=== PATIENT | female | born 1935 | race Caucasian/White ===

== ENCOUNTER 2016-05-07 14:08 | Inpatient (IN) | payer MEDICARE, BC ==
--- NOTE | ~2016-05-07 | EKG ---
PATIENT: KENIA NEGRON UNIT #: [id number] Ventricular Rate: 66 BPM Atrial Rate: 66 BPM P-R Interval: 172 ms QRS Duration: 80 ms Q-T Interval: 394 ms QTC Calculation(Bezet): 413 ms P Austin: 0 degrees Calculated R Austin: -60 degrees Calculated T Austin: 57 degrees Diagnosis Line: Sinus rhythm with Premature atrial complexes Diagnosis Line: Left anterior fascicular block Diagnosis Line: Cannot rule out Anteroseptal infarct (cited on or Diagnosis Line: before 08-MAY-2016) Diagnosis Line: Abnormal ECG Diagnosis Line: When compared with ECG of 06-FEB-2016 17:32, Diagnosis Line: Nonspecific T wave abnormality, improved in Diagnosis Line: Inferior leads Diagnosis Line: Confirmed by ALDO TIERNEY MD ([id number]) on 05/09/2016 Diagnosis Line: 6:06:15 PM INTERPRETING MD: NIALL BENTON
--- NOTE | ~2016-05-07 | DS ---
Unit #: [id number] #: [id number] Patient: KENIA NEGRON [id number] [address] [address] [id number] I MR#: [id number] NAME: KENIA NEGRON. ROOM: 55 Age: 81 Sex: F Admission Date: 05/07/2016 : 1935 Discharge Date: 05/10/2016 Attending Physician: Obinna Platt M.D. Primary Care Physician: Yessica Callejas M.D. DISCHARGE SUMMARY DIAGNOSES ON ADMISSION 1. Acute pyelonephritis. 2. Nephrolithiasis. DIAGNOSES ON DISCHARGE 1. Acute Klebsiella urinary tract infection. 2. Bradycardia, resolved. 3. Valvular heart disease, [id number] mitral and tricuspid regurgitation. 4. Paroxysmal atrial tachycardia. 5. Chronic obstructive pulmonary disease. 6. Hypertension. 7. Hyperlipidemia. 8. Chronic kidney disease. 9. Coronary artery disease. 10. Iron-deficiency anemia. Patient had an EGD and colonoscopy done in January,. 11. Hypertension. CONSULTATIONS 1. Dr. Rudolph in cardiac consultation. 2. Dr. Ashford in urology consultation. DIAGNOSTIC STUDIES LABORATORY: The patient's creatinine is 0.14, sodium is 141, potassium is 3.7. WBC 7.2, hemoglobin 8.4, platelet count 294,000. Urinalysis revealed acute (1) yeast. Urine culture is positive for Klebsiella pneumoniae. Patient's ferritin level was 14. IMAGING: CT scan of the abdomen and pelvis revealed diverticulosis. There was no evidence of diverticulitis. There was moderate stool in rectum and colon. HOSPITAL COURSE A 81-year-old female was admitted to [facility] with acute pyelonephritis. Details are as per admission H and P. Acute complicated UTI secondary to Klebsiella: The patient was treated with antibiotics. She is afebrile. Acute on chronic kidney disease: The patient's creatinine is much better now. Anemia: The patient has iron-deficiency anemia. She had scopes done in Unit #: [id number] #: [id number] Patient: KENIA NEGRON March 2015. I have added Ferrex. Today patient is comfortable, is not in any acute distress and wants to go home. PHYSICAL EXAMINATION VITAL SIGNS: Reveal temperature 97.8, pulse is 77 per minute, respiratory rate is 16 per minute, blood pressure this morning was 177/86. We will repeat that. HEENT: Revealed no conjunctival congestion. Sclerae is nonicteric. NECK: Supple. Trachea is central. RESPIRATORY: Revealed breath sounds equal bilaterally. There are no wheezes or crackles. HEART: Regular rate and rhythm. S1, S2. ABDOMEN: Soft, nontender. Bowel sounds are present in all four quadrants. SKIN: Warm and dry. RECOMMENDATIONS ON DISCHARGE Condition is stable. Activity as tolerated. MEDICATIONS 1. Symbicort 160/4.5 two puffs b.i.d. 2. Combivent MDI q.6 hours p.r.n. 3. Prednisone 3 mg p.o. daily. 4. Tylenol 650 mg p.o. q.6 hours p.r.n. 5. Mag-Oxide 400 mg p.o. b.i.d. 6. Celexa 20 mg p.o. daily. 7. Methotrexate 12.5 mg p.o. every Saturday. 8. Alprazolam 0.25 mg p.o. nightly p.r.n. 9. Lopressor 25 mg p.o. b.i.d. 10. Senokot S one tablet p.o. daily. 11. Lipitor 40 mg p.o. nightly. 12. Hydralazine 50 mg p.o. b.i.d. 13. Allopurinol 300 mg p.o. daily. 14. Niferex 150 mg p.o. daily. 15. Enteric coated aspirin 81 mg p.o. daily. 16. Hydrocodone 10 mg one p.o. t.i.d. p.r.n. which is patient's home dose. 17. Synthroid 25 mcg p.o. daily. 18. Isosorbide 10 mg p.o. b.i.d. 19. Nitroglycerin sublingual as needed. 20. Folic acid 1 mg p.o. daily. 21. Vitamin D 50,000 units q. Saturday. 22. Omnicef 300 mg p.o. b.i.d. for one week. 23. Diflucan 100 mg p.o. daily for two days. FOLLOWUP The patient is advised to follow up with primary care physician in one week and with cardiology and urology as recommended. Please make note that patient's digoxin was discontinued and dose of Lopressor was decreased because of bradycardia which as improved. The patient was advised to call primary care physician or go to ER if her condition changes. Unit #: [id number] #: [id number] Patient: KENIA NEGRON Dictated by... Jesus Drake TD: 05/10/2016 11:41 JOB #: [id number] DISCHARGE SUMMARY X Obinna Platt MD X DISCHARGE SUMMARY
--- NOTE | ~2016-05-07 | CO ---
Unit #: [id number] #: [id number] Patient: KENIA NEGRON [id number] [id number] [facility]. [place], [place] [address] [id number] I MR#: [id number] NAME: KENIA NEGRON ROOM: 558 Age: 80 Sex: F Admission Date: 05/07/2016 : 1935 Attending Physician: Obinna Platt M.D. Primary Care Physician: Yessica Callejas M.D. CONSULTATION REPORT REASON FOR CONSULTATION Bradycardia. HISTORY OF PRESENT ILLNESS This is a 80-year-old white female who is known to Dr. Almendarez who has a history of hypertension, hyperlipidemia, and paroxysmal atrial tachycardia. She had a cardiac catheterization in 2015 where she was found to have nonobstructive disease with 60% stenosis of the PDA of the right coronary artery. The patient presents to the emergency room with a complaint of lower abdominal discomfort, urinary symptoms with burning and mild hematuria and low back pain. Urinalysis positive for a urinary tract infection. Cultures are growing Gram-negative rods. CT of the abdomen and pelvis shows a nonobstructive stone in the mid right kidney. No evidence of appendicitis. She has been treated for pyelonephritis. Today, the patient had an episode of nausea and vomiting of non-bloody emesis. During that episode, her heart rate dropped to 37 beats per minute. The patient said she had a slight episode of dizziness. She also reports chest discomfort that was all going throughout the night. She describes the chest discomfort as a tightness. It is nonradiating to her neck, arm or jaw. She had no associated dyspnea, diaphoresis or nausea. Electrocardiogram shows no acute ischemic changes. PAST MEDICAL HISTORY 1. Cardiac catheterization 09/07/2015, shows left main, LAD and circumflex arteries normal. Right coronary artery 60% stenosis ostial to PDA. 2. 2D echocardiogram 11/30/2015, shows an ejection fraction of 60% with mild to moderate mitral regurgitation and mild to moderate tricuspid regurgitation. 3. 24 hour Holter monitor 01/16/2016 shows normal sinus rhythm. There was pause up to 1.9 seconds. Frequent premature atrial complexes and several runs of atrial tachycardia. 4. Paroxysmal atrial tachycardia. 5. Hypertension. 6. Hyperlipidemia. 7. COPD. 8. Rheumatoid arthritis. 9. Chronic back pain. 10. GERD. 11. Hypothyroidism. 12. Chronic kidney disease. 13. Nonsmoker. Unit #: [id number] #: [id number] Patient: KENIA NEGRON PAST SURGICAL HISTORY 1. Hysterectomy. 2. Tonsillectomy. 3. Rectocele. 4. Lumbar spinal fusion with instrumentation. 5. Right shoulder replacement. SOCIAL HISTORY The patient ambulates with a cane and uses a walker on occasion. Her activity is limited because of back pain. She has never smoked. No illicit drug or alcohol use. FAMILY HISTORY Both parents have heart problems. Has a sister and brother both who from cerebrovascular accidents. ALLERGIES Sulfa. HOME MEDICATIONS 1. Allopurinol 300 mg daily. 2. Digoxin 0.125 mg on Saturday, Saturday and Saturday. 3. Vitamin D 50,000 units weekly. 4. Prednisone 3 mg daily. 5. Folic acid 1 mg daily. 6. Combivent two puffs b.i.d. p.r.n. 7. Methotrexate five tablets on Saturday. 8. Celexa 20 mg daily. 9. Xanax 0.25 mg q. h.s. p.r.n. 10. Nitroglycerin 0.4 mg sublingual q.5 minutes p.r.n. chest pain. 11. Symbicort 160/4.5 mg, three puffs b.i.d. 12. Senna S, one tablet daily. 13. Levothyroxine 25 mcg daily. 14. Magnesium 400 mg b.i.d. 15. Zantac 150 mg b.i.d. 16. Lopressor 50 mg b.i.d. 17. Isosorbide mononitrate 10 mg b.i.d. 18. Hydrocodone/acetaminophen 10/325, t.i.d. REVIEW OF SYSTEMS CONSTITUTIONAL: Positive for weakness and fatigue. Reports no fever or chills. HEENT: No headache, hearing or visual changes. No difficulty swallowing. Positive for dizziness. CARDIOVASCULAR: Has chest discomfort described in the HPI. Denies palpitations. No paroxysmal nocturnal dyspnea or orthopnea. Denies syncope or near syncope. RESPIRATORY: Negative for dyspnea, cough or hemoptysis. GASTROINTESTINAL: Positive for lower abdominal pain and right flank pain. Positive for nausea and vomiting, non-bloody emesis. EXTREMITIES: Negative for lower extremity edema. PHYSICAL EXAMINATION VITAL SIGNS: Blood pressure 158/73, heart rate 68, temperature 99.8, BMI 24. GENERAL: This is a 80-year-old, well developed, elderly white female who is in no acute respiratory distress. NEUROLOGICAL: She is awake, alert and oriented without focal weaknesses. Unit #: [id number] #: [id number] Patient: KENIA NEGRON NECK: Trachea is midline. No thyromegaly or lymphadenopathy. No jugular venous distention. HEART: S1, S2. Heart sounds are normal. There is a grade 2 out of 6 systolic murmur heard best at the apex. No rubs or clicks. Regular rate and rhythm. LUNGS: Clear to auscultation without rales, rhonchi or wheezes. ABDOMEN: Soft with bowel sounds present. Tenderness in the lower abdominal quadrants. EXTREMITIES: Without leg edema. SKIN: Warm and dry. DIAGNOSTIC STUDIES LABORATORY: Glucose 82, BUN 19, creatinine 1.5, sodium 141, potassium 4.2, magnesium 1.7, CK total 46, troponin 0.04. Iron 15, TIBC 273. Ferritin 14, transferrin 195. White count 6.6, hemoglobin 8.1, hematocrit 25.9, platelet count 266. IMAGING: CT of the abdomen and pelvis shows nonobstructive stone in the mid right kidney. No evidence of appendicitis. Diverticulosis without evidence of diverticulitis. CARDIOVASCULAR: Electrocardiogram - normal sinus rhythm with frequent premature atrial complexes. There is loss of R wave V1 through V4 with questionable old anteroseptal AR. Left anterior fascicular block. IMPRESSION 1. Acute pyelonephritis. 2. Urinary tract infection with Gram-negative bacillus. 3. Bradycardia. 4. History of paroxysmal atrial tachycardia. 5. Hypertension. 6. Hyperlipidemia. 7. Nonobstructive coronary artery disease with 60% to the ostial PDA per cardiac catheterization 08/2015. 8. Atypical chest pain. 9. Preserved left ventricular systolic function, ejection fraction of 60%. PLAN 1. Cardiology was consulted for bradycardia. Bradycardia was episodic when the patient was nauseated and vomiting. 2. Will discontinue digoxin. 3. Decrease dose of metoprolol to 25 mg b.i.d. 4. Chest pain is atypical for ischemic heart disease. She had coronary artery disease on cardiac catheterization in 2015. Troponin is negative. No acute ischemic changes on electrocardiogram. No cardiac workup is needed at this time. Thank you for allowing us to assist with this patient's care. Dictated by... Phil ChavezRJesus Whittington Unit #: [id number] #: [id number] Patient: KENIA NEGRON TD: 05/09/2016 10:21 JOB #: [id number] CONSULTATION REPORT X Daniel Weir APRN X CONSULTATION REPORT
--- NOTE | ~2016-05-07 | CT4 ---
[facility] A Service of [facility] & [facility] RADIOLOGY TEXT RESULTS PATIENT: KENIA NEGRON [facility] [id number] : 37 UNIT #: [id number] AGE: [address]: PAVITHRA MOCK MD SEX: F ORDER DR: [id number] [facility] [address] [place], [place] [address] [id number] MR#: [id number] Acc #: [id number] NAME: KENIA NEGRON. : 1935 SEX: F STUDY DATE/TIME: 05/07/2016 UNIT: [facility] ROOM: STUDY DESCRIPTION: CT Abd and Pelv Wo Cont Attending Physician: Melinda Aguilera M.D. Ordering Physician: Melinda Aguilera M.D. Primary Care Physician: Yessica Callejas M.D. MEDICAL IMAGING REPORT This report is preliminary unless electronic signature is present EXAM CT abdomen and pelvis without contrast 05/07/2016 13:25 hours HISTORY 80-year-old woman with complaint of back pain, right flank pain radiating to abdomen for 2 days. History of kidney stones. COMPARISON CT abdomen 03/29/2016 TECHNIQUE Helical noncontrasted images were obtained from the lung bases through the pubic symphysis without oral or intravenous contrast. Sagittal and coronal reconstructions were performed. Total exam DLP is 472 mGy-cm. The CT exam was performed with one or more of the following radiation dose reduction techniques: automatic exposure control, adjustment of mA and/or kV according to patient size, and iterative reconstruction. FINDINGS Images through the lung bases are clear and there are no effusions. Benign calcified granulomatous changes are stable. There is a small hiatal hernia without change. Noncontrasted images through the abdomen demonstrate a normal appearance to the liver, spleen, pancreas and bile ducts. The gallbladder is surgically absent. The adrenal glands are normal. There is a punctate stone in the anterior right mid kidney nonobstructing. There is no dilatation of the renal collecting systems or ureters. No ureteral calculi are seen. The bladder appears normal. The stomach is contracted and unopacified. Small bowel demonstrates no significant distension. There is generally increased amount of fluid in STS. [facility] A Service of [facility] & [facility] RADIOLOGY TEXT RESULTS PATIENT: KENIA NEGRON LOCATION: [facility] [id number] : 37 UNIT #: [id number] AGE: [address]: PAVITHRA MOCK MD SEX: F ORDER DR: the small bowel but no wall thickening. The terminal ileum is normal. I do not identify the appendix. There is no secondary evidence of appendicitis. There is moderate stool throughout the colon without colonic wall thickening. There are colonic diverticula in the distal descending colon and sigmoid colon without CT evidence of diverticulitis. There is moderate stool in the rectum. There is no adnexal mass or pelvic free fluid. IMPRESSION 1. Exam is limited by the lack of oral or intravenous contrast. There is no ureterectasis ureteral calculus seen. There is a punctate nonobstructing stone in the mid right kidney. 2. The gallbladder is surgically absent. 3. There is no evidence of appendicitis. 4. There is diverticulosis of the descending colon and sigmoid colon without CT evidence of diverticulitis. 5. There is a generalized increased amount of fluid in nondilated small bowel with no wall thickening. This is nonspecific. 6. Moderate stool in the colon and rectum. 7. The patient has had lumbar fusion with hardware present. There is no change and scoliosis or alignment. Hardware is intact. Dictated by... Abi Juan M.D. THIS IS AN ELECTRONICALLY VERIFIED REPORT Abi Juan M.D. at 05/07/2016 4:59 PM CHILANGO/mana TD: 05/07/2016 14:52 JOB #: [id number] MEDICAL IMAGING REPORT COPY
--- NOTE | ~2016-05-07 | CO ---
Unit #: [id number] #: [id number] Patient: KNEIA NEGRON [id number] [address] [place], [place] [address] [id number] I MR#: [id number] NAME: KENIA NEGRON ROOM: 558 Age: 80 Sex: F Admission Date: 05/07/2016 : 1935 Attending Physician: Obinna Platt M.D. Primary Care Physician: Yessica Callejas M.D. Consultation Date: 05/08/2016 CONSULTATION REPORT CHIEF COMPLAINT Burning with urination. HISTORY OF PRESENT ILLNESS The patient is a 80-year-old woman with history of rheumatoid arthritis. She was complaining about burning on urination. CT scan showed small punctate stone in the right kidney. No obstruction. No hydro. Urinalysis positive for leukocytes and yeast. Consult was made for us to see for these findings. PAST MEDICAL HISTORY Rheumatoid arthritis, COPD, A fib, chronic back pain, chronic kidney disease, anxiety, degenerative joint disease, depression, hypertension, back surgery, rectocele repair, hysterectomy, tonsillectomy. ALLERGIES Sulfa. MEDICATIONS Allopurinol, digoxin, vitamin D, prednisone, folic acid, Combivent, methotrexate, Celexa, Xanax, nitroglycerin, Symbicort, Senna, Synthroid, magnesium, Zantac, Lopressor, isosorbide, hydrocodone. PHYSICAL EXAMINATION VITAL SIGNS: Temperature 98. Other vital signs stable. GENERAL: Currently the patient is not in her room. DIAGNOSTIC STUDIES LABS: Creatinine 1.7. White blood cell count 6.6. Urinalysis, as mentioned, 3+ leukocytes, positive for yeast, positive for blood. 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 ASSESSMENT Likely UTI. PLAN Will start her on Diflucan, wait for culture sensitivities. No need for any urologic intervention at this time. Patient is currently on Rocephin. Thank you for the kind referral and consult. Dictated by... Unit #: [id number] #: [id number] Patient: KENIA NEGRON Jesus Hardin/charlene TD: 05/08/2016 09:15 JOB #: [id number] CONSULTATION REPORT X James Ashford MD CONSULTATION REPORT
--- NOTE | ~2016-05-07 | HP ---
Unit #: [id number] #: [id number] Patient: KENIA NEGRON [id number] [address] [address] [id number] I MR#: [id number] NAME: KENIA NEGRON. ROOM: 76166 Age: 80 Sex: F Admission Date: 05/07/2016 : 1935 Attending Physician: Peter Pena M.D. Primary Care Physician: Yessica Callejas M.D. HISTORY AND PHYSICAL CHIEF COMPLAINT Lung pain. HISTORY OF PRESENT ILLNESS The patient is a 80-year-old female with history of rheumatoid arthritis on steroids and atrial fibrillation, COPD, emphysema, chronic back pain who presented to the emergency room with a complaint of worsening flank pain. The patient has had this pain for the last two to three weeks and was seen at the rheumatology clinic this morning for the routine blood work. The patient was having severe pain associated with the decreased oral intake and burning sensation with urination. The patient was found to have a pyelonephritis with a UA positive for 3+ leukocyte esterase and innumerable urine WBCs and 5-10 urine RBCs. The patient had a CT of the abdomen and pelvis that showed a punctate nonobstructing stone in the mid right kidney. The patient has been admitted for the above reasons. The patient denies any fever, chills. Denies nausea, vomiting. PAST MEDICAL HISTORY 1. History of COPD. 2. Emphysema. 3. Chronic hypoxic respiratory failure on 2 L nocturnal oxygen. 4. Rheumatoid arthritis on chronic steroids. 5. Atrial fibrillation. 6. Hypertension. 7. Hyperlipidemia. 8. Degenerative joint disease. 9. Chronic back pain. 10. Depression. 11. Anxiety. 12. Chronic kidney disease. PAST SURGICAL HISTORY 1. History of partial hysterectomy. 2. Tonsillectomy. 3. Rectocele. 4. Lumbar fusion with instrumentation. 5. Right shoulder replaced. ALLERGIES Sulfa. SOCIAL HISTORY Denies any tobacco, alcohol, or any illicit drug abuse. Unit #: [id number] #: [id number] Patient: KENIA NEGRON FAMILY HISTORY Significant for lung cancer in sister and two brothers. HOME MEDICATIONS 1. Allopurinol. 2. Digoxin. 3. Vitamin D. 4. Prednisone. 5. Folic acid. 6. Combivent. 7. Methotrexate. 8. Celexa. 9. Alprazolam. 10. Nitroglycerin. 11. Symbicort. 12. Senna. 13. Synthroid. 14. Magnesium. 15. Zantac. 16. Lopressor. 17. Isosorbide. 18. Hydrocodone. REVIEW OF SYSTEMS A 14-point review of systems was performed and only pertinent positives were described above, remaining are negative. PHYSICAL EXAMINATION GENERAL: The patient is alert, awake, oriented, not in acute distress. VITAL SIGNS: Temperature 98.3, pulse 60, respiratory rate 15, blood pressure 152/77, saturating 99% on room air. HEENT: Head: Atraumatic, normocephalic. Pupils equal, round, and reactive to light and accommodation. Extraocular movements are intact. NECK: Supple without thyromegaly. LUNGS: Decreased air entry at the bases. No rhonchi. No wheezing. HEART: Regular rate and rhythm. ABDOMEN: Soft. Positive bowel sounds. BACK: Positive for right-sided flank tenderness and CVA tenderness. EXTREMITIES: No cyanosis. No clubbing. NEUROLOGIC: Alert, awake, oriented. No gross focal motor deficit. DIAGNOSTIC STUDIES LABORATORY: Glucose 116, BUN 23, creatinine 1.7, sodium 136, potassium 3.8, chloride 100, bicarbonate 29, calcium 9.3. Total protein 6.2, albumin 3.6, total bilirubin 0.6, AST 21, ALT 16, alkaline phosphatase 58. Lipase 19. WBC 6.3, hemoglobin 8.8, hematocrit 28.8, platelets 287,000, neutrophils 55.9. UA shows 3+ leukocyte esterase, 1+ protein, 3+ blood, urine RBCs 5-10, urine WBCs innumerable. IMAGING: CT of the abdomen and pelvis shows there is no ureterectasis or ureteral calculus seen. There is punctate nonobstructing stone in the mid right kidney. The gallbladder is surgically absent. There is no evidence of appendicitis. There is diverticulosis of the descending colon and sigmoid colon without CT evidence of diverticulitis. There is a generalized increased amount of fluid and nondilated small bowel with no wall thickening. This is nonspecific. Moderate stool in the colon and rectum. The patient has had lumbar fusion with hardware present. There Unit #: [id number] #: [id number] Patient: KENIA NEGRON is no change or scoliosis or alignment. Hardware is intact. ASSESSMENT 1. Right-sided pyelonephritis. 2. Nephrolithiasis. 3. Hypertension. 4. Anemia. PLAN Plan to admit the patient to inpatient with telemetry. Continue with IV antibiotics with Rocephin. Will have urology consult for the pyelonephritis with nephrolithiasis and hematuria. Check the lactate levels and repeat the CBC and BMP in the morning. Pain control with Dilaudid. Further recommendations will follow. Dictated by Jesus Krueger TD: 05/07/2016 16:27 JOB #: [id number] HISTORY AND PHYSICAL X X HISTORY AND PHYSICAL
[2016-05-07 12:15] LABS: URINE SOURCE CLEAN CATCH
[2016-05-07 12:31] LABS: URINE APPEARANCE CLOUDY; URINE BLOOD 3+ (NEG); URINE COLOR YELLOW; URINE GLUCOSE NORM (NORM); URINE KETONE NEG (NEG); URINE LEUKOCYTE ESTERASE 3+ (NEG); URINE NITRATE NEG (NEG); URINE PROTEIN 1+ (NEG); URINE UROBILINOGEN NORM (NORM)
[2016-05-07 12:32] LABS: URINE BILIRUBIN NEG (NEG)
[2016-05-07 12:34] LABS: BASOPHIL% 0.5 % (0-2.5); EOSINOPHIL# 0.5 X10e3 (0-0.7); EOSINOPHIL% 7.8 % (0.0-7.0); HEMATOCRIT 28.8 % (35.0-45.0); HEMOGLOBIN 8.8 gm/dL (12.0-16.0); LYMPHOCYTE# 1.2 X10e3 (1.0-3.5); MEAN CELL VOLUME 93.4 FL (83-96); MEAN CORPUSCULAR HEMOGLOBIN 28.7 PG (28-34); MEAN CORPUSCULAR HGB CONC 30.7 g/dL (30-36); MEAN PLATELET VOLUME 8.1 FL (6.5-11.5); MONOCYTE# 1.1 X10e3 (0-1.0); MONOCYTE% 16.8 % (3.0-12.0); NEUTROPHIL# 3.5 X10e3 (1.5-7.1); NEUTROPHIL% 55.9 % (40-75); PLATELET COUNT 287 X10e3 (140-420); RED BLOOD COUNT 3.08 X10e (3.90-5.30); RED CELL DISTRIBUTION WIDTH 19.7 % (11.0-15.5); WHITE BLOOD COUNT 6.3 X10e3 (4.0-10.5)
[2016-05-07 12:50] LABS: DIFF IND NO
[2016-05-07 12:58] LABS: ALBUMIN SERUM 3.6 g/dL (3.5-5.0); BILIRUBIN, DIRECT 0.1 mg/dL (0.0-0.2); BILIRUBIN,INDIRECT 0.5 mg/dL (0.0-0.9); BILIRUBIN,TOTAL 0.6 mg/dL (0.2-2.0); BUN/CREATININE RATIO 13.52; CALCIUM SERUM 9.3 mg/dL (8.4-10.2); CREATININE SERUM 1.7 mg/dL (0.6-1.4); GLOM FILT RATE Estimated 30.9 mL/min (>60); POTASSIUM 3.8 mmol/L (3.5-5.1); PROTEIN TOTAL SERUM 6.2 g/dL (6.0-8.3)
[2016-05-07 12:58] LABS: CULTURE INDICATED? YES; URINE BACTERIA AUWI 1+ (NEGATIVE); UWBCS1 AUWI INNUM (0-5)
[2016-05-07 12:59] LABS: URINE AMORPHOUS SEDIMENT AMORP URATES; URINE YEAST PRESENT
[~2016-05-07 14:08] MED LIST: ADALAT CC90 MG PO; ALBUTEROL MININEB NEB; ALBUTEROL17 GM; ALBUTEROL17 GM INH; ALBUTEROL20 ml INH; ALLOPURINOL300 MG PO; ALPRAZOLAM0.25 MG PO; APRESOLINE10 M1 PO; ASPIRIN EC81 M1 PO; ASPIRIN PO; ASPIRIN81 M2 PO; ASPIRIN81 MG PO; AZMACORT20 GM INH; CATAPRES-TTS-10.1 M1 PO; CATAPRES0.1 MG PO; CELEXA20 M1 PO; CELEXA20 MG PO; COLCRYS0.6 M2 PO; COMBIVENT RESPIM4 GM IH; CONZIP100 MG PO; DIGOX0.125 MG PO; DOXYCYCLINE HY100 M3 PO; FELDENE20 MG PO; FOLIC ACID PO; FOLIC ACID1 MG PO; HCTZ PO; HUMIBID-LA600 MG PO; HYDRALAZINE HCL25 MG PO; HYDROCHLOROTHIA25 MG PO; HYDROCODON-ACE1 EAC7 PO; ISOSORBIDE MONO10 MG PO; K-DUR20 ME1 DOB; LANOXICAPS0.1 M1 PO; LEVOTHYROXINE25 MC1 PO; LEVOTHYROXINE25 MCG PO; LIPITOR PO; LIPITOR20 MG DOB; LIPITOR20 MG PO; LOPRESSOR PO; LORTAB 7.51 TAB DOB; MAGNESIUM-VIT1 EACH PO; MAGNESIUM400 M1 PO; METHOTREXATE2.5 MG PO; METOPROLOL SUCC25 MG PO; MICRO-K PO; MIRALAX17 GM PO; NEXIUM PO; NIFEDIPINE ER30 MG PO; NIFEDIPINE ER90 M1 PO; NIFEDIPINE ER90 M2 PO; NITROGLYGERIN0.4 MG SL; OMNICEF300 MG PO; OXYGEN; PERCOCET 5-3251 TAB PO; PHENERGAN25 MG PO; PREDNISONE PO; PREDNISONE1 MG PO; PREDNISONE10 MG/DOSE PO; PREDNISONE5 M1 PO; PRILOSEC PO; PRILOSEC20 M1 PO; PRILOSEC40 MG PO; PROCARDIA10 MG PO; PROCARDIA90 MG/BOTT PO; PROZAC PO; SARAFEM20 MG PO; SENNA S TABLET1 TAB PO; SYMBICORT 160/4.6 G1 IH; SYMBICORT INH; SYNTHROID25 MCG PO; TAMSULOSIN HCL0.4 MG PO; TOPROL XL 50 MG50 MG PO; TRAMADOL HCL50 M1 PO; TUDORZA PRESS400 MCG IH; VITAL-D RX TABL1 TAB PO; VITAMIN B-12250 MCG PO; VITAMIN D250000 UNIT PO; VITAMIN D50000 UNIT PO; WALGREENS PHARMACY; ZANTAC150 MG PO; ZITHROMAX500 MG PO; ZOFRAN ODT4 MG DOB; [UNRECOGNIZED DRUG - OTHER]
[2016-05-07] MEDS ORDERED: HYDROCODON-ACE1 EAC5 PO (14:57)
[2016-05-07] MEDS ORDERED: LOPRESSOR PO (17:20)
[2016-05-08 06:51] LABS: HEMATOCRIT 25.9 % (35.0-45.0); HEMOGLOBIN 8.1 gm/dL (12.0-16.0); MEAN CORPUSCULAR HEMOGLOBIN 28.9 PG (28-34); MEAN CORPUSCULAR HGB CONC 31.4 g/dL (30-36); MEAN PLATELET VOLUME 8.3 FL (6.5-11.5); RED BLOOD COUNT 2.81 X10e (3.90-5.30); RED CELL DISTRIBUTION WIDTH 19.7 % (11.0-15.5); WHITE BLOOD COUNT 6.6 X10e3 (4.0-10.5)
[2016-05-08 08:02] LABS: BUN/CREATININE RATIO 12.66; CALCIUM SERUM 9.2 mg/dL (8.4-10.2); CREATININE SERUM 1.5 mg/dL (0.6-1.4); GLOM FILT RATE Estimated 35.7 mL/min (>60); POTASSIUM 4.2 mmol/L (3.5-5.1)
[2016-05-08 10:53] LABS: FOLATE (FOLIC ACID) >24.0 ng/mL (>5.8)
[2016-05-08 11:19] LABS: IRON SERUM 15 ug/dL (28-170); TOTAL IRON BINDING CAPACITY 273 ug/dL (269-535); TRANSFERRIN 195 mg/dL (192-382); TRANSFERRIN SATURATION 5 % (20-50)
[2016-05-08 13:45] LABS: MAGNESIUM 1.7 mg/dL (1.6-3.0)
[2016-05-09 05:14] LABS: HEMOGLOBIN 8.7 gm/dL (12.0-16.0); MEAN CELL VOLUME 92.6 FL (83-96); MEAN CORPUSCULAR HEMOGLOBIN 28.7 PG (28-34); MEAN CORPUSCULAR HGB CONC 31.1 g/dL (30-36); MEAN PLATELET VOLUME 7.9 FL (6.5-11.5); RED BLOOD COUNT 3.02 X10e (3.90-5.30); RED CELL DISTRIBUTION WIDTH 19.9 % (11.0-15.5); WHITE BLOOD COUNT 7.4 X10e3 (4.0-10.5)
[2016-05-09 06:10] LABS: BUN/CREATININE RATIO 8.66; CALCIUM SERUM 9.1 mg/dL (8.4-10.2); CREATININE SERUM 1.5 mg/dL (0.6-1.4); GLOM FILT RATE Estimated 35.7 mL/min (>60); POTASSIUM 4.4 mmol/L (3.5-5.1)
[2016-05-10 06:20] LABS: HEMATOCRIT 26.8 % (35.0-45.0); HEMOGLOBIN 8.4 gm/dL (12.0-16.0); MEAN CELL VOLUME 92.4 FL (83-96); MEAN CORPUSCULAR HGB CONC 31.4 g/dL (30-36); MEAN PLATELET VOLUME 8.2 FL (6.5-11.5); RED BLOOD COUNT 2.9 X10e (3.90-5.30); RED CELL DISTRIBUTION WIDTH 19.8 % (11.0-15.5); WHITE BLOOD COUNT 7.2 X10e3 (4.0-10.5)
[2016-05-10 07:23] LABS: BUN/CREATININE RATIO 8.57; CALCIUM SERUM 9.1 mg/dL (8.4-10.2); CREATININE SERUM 1.4 mg/dL (0.6-1.4); GLOM FILT RATE Estimated 38.6 mL/min (>60); POTASSIUM 3.7 mmol/L (3.5-5.1)
[2016-05-10] MEDS ORDERED: ASPIRIN81 MG PO (13:21)
[2016-05-10] MEDS ORDERED: HYDRALAZINE HCL50 MG PO (13:22)
[2016-05-10] MEDS ORDERED: LIPITOR40 MG PO (13:22)
[2016-05-10] MEDS ORDERED: OMNICEF300 M1 PO (13:23)
[2016-05-10] MEDS ORDERED: DIFLUCAN100 MG PO (13:24)
== END 2016-05-10 14:38 | disposition home health service (06) | DRG 690 ==
LOC: CED 14:08 → CEDOF 15:30 → C5B 19:18
PROVIDERS: Internal Medicine; Student in an Organized Health Care Education/Training Program
DX: N39.0 Urinary tract infection, site not specified (principal); J96.11 Chronic respiratory failure with hypoxia; I48.0 Paroxysmal atrial fibrillation; R00.1 Bradycardia, unspecified; I36.1 Nonrheumatic tricuspid (valve) insufficiency; B96.89 Other specified bacterial agents as the cause of diseases classified elsewhere; R31.9 Hematuria, unspecified; I12.9 Hypertensive chronic kidney disease with stage 1 through stage 4 chronic kidney disease, or unspecified chronic kidney disease; E78.5 Hyperlipidemia, unspecified; J44.9 Chronic obstructive pulmonary disease, unspecified; M06.9 Rheumatoid arthritis, unspecified; K21.9 Gastro-esophageal reflux disease without esophagitis; E03.9 Hypothyroidism, unspecified; Z90.711 Acquired absence of uterus with remaining cervical stump; Z96.611 Presence of right artificial shoulder joint; Z88.2 Allergy status to sulfonamides; Z79.52 Long term (current) use of systemic steroids; I34.0 Nonrheumatic mitral (valve) insufficiency; D50.9 Iron deficiency anemia, unspecified; N20.0 Calculus of kidney; N18.3 Chronic kidney disease, stage 3 (moderate)
CPT/HCPCS: 36415; 74176; 80048; 80076; 81003; 82274; 82550; 82607; 82728; 82746; 83540; 83550; 83605; 83690; 83735; 84484; 85025; 85027; 87086; 87088; 87186; 93005; 94640; 94664; 94760; 96365; 96375; 96376; 97162; 99285; G8978-GP; G8979-GP; G8980-GP; J0696; J1170; J1450; J1650; J2405; J3010; J3475; J8610

== ENCOUNTER 2016-07-22 19:12 | Emergency (ER) | payer MEDICARE, BC ==
--- NOTE | ~2016-07-22 | NM69 ---
[facility] A Service of [facility] RADIOLOGY TEXT RESULTS PATIENT: KENIA NEGRON LOCATION: [facility] : 37 UNIT #: [id number] AGE: [address]: Hansa Hernandez MD SEX: F ORDER DR: [id number] [facility] [address] [place], [place] [address] [id number] E MR#: [id number] Acc #: [id number] NAME: KENIA NEGRON. : 1935 SEX: F STUDY DATE/TIME: 07/23/2016 0:20 UNIT: MISA ROOM: STUDY DESCRIPTION: NM Pulm Vent and Perf Attending Physician: Hansa Hernandez M.D. Ordering Physician: Hansa Hernandez M.D. Primary Care Physician: Yessica Callejas M.D. MEDICAL IMAGING REPORT This report is preliminary unless electronic signature is present EXAM Ventilation-perfusion lung scan HISTORY 81-year-old female COPD, elevated D-dimer, shortness of air. COMPARISON Portable chest, 07/22/2016 FINDINGS Ventilation-perfusion lung scan was performed in standard 8 projections. Perfusion agent 5.3 mCi technetium 99m MAA and the ventilation agent 35.2 mCi technetium 99m DTPA aerosol. The examination demonstrates several small matched ventilation-perfusion defects. No ventilation-perfusion mismatch is seen. Mild asymmetry and ventilation perfusion right and left lung with greater perfusion and ventilation right lung that corresponds to the chest radiograph. Symmetric perfusion between the upper and lower lobes. There is some central deposition of radiopharmaceutical suggesting small airway disease. IMPRESSION Low probability ventilation-perfusion lung scan for pulmonary embolus. Central deposition of radiopharmaceutical on the ventilatory phase suggests small airway disease or emphysema. Dictated by... Tara Steele M.D. THIS IS AN ELECTRONICALLY VERIFIED REPORT Tara Steele M.D. at 07/23/2016 9:59 PM Krissy TD: 07/23/2016 09:26 [facility] A Service of [facility] RADIOLOGY TEXT RESULTS PATIENT: KENIA NEGRON [facility] [id number] : 37 UNIT #: [id number] AGE: [address]: Hansa Hernandez MD SEX: F ORDER DR: JOB #: [id number] MEDICAL IMAGING REPORT Page 1 of 1 COPY
--- NOTE | ~2016-07-22 | CR151 ---
[facility] A Service of [facility] RADIOLOGY TEXT RESULTS PATIENT: KENIA NEGRON LOCATION: [facility] : 37 UNIT #: [id number] AGE: [address]: Hansa Hernandez MD SEX: F ORDER DR: [id number] [facility] [address] [place], [place] [address] [id number] E MR#: [id number] Acc #: [id number] NAME: KENIA NEGRON : 1935 SEX: F STUDY DATE/TIME: 07/22/2016 19:34 UNIT: [facility] ROOM: STUDY DESCRIPTION: CR Hip Min 2 Views Rt Attending Physician: Hansa Hernandez M.D. Ordering Physician: Hansa Hernandez M.D. Primary Care Physician: Yessica Callejas M.D. MEDICAL IMAGING REPORT This report is preliminary unless electronic signature is present EXAM Right hip series INDICATION Right hip pain for the past 2 days. No known injury. PROCEDURE Frontal view of the pelvis, lateral view right hip. COMPARISON 12/01/2014 FINDINGS No fracture or dislocation. Left greater than right hip arthrosis. IMPRESSION 1. No acute findings. 2. Bilateral hip arthrosis left greater than right. Dictated by... Jeovany Ortiz M.D. THIS IS AN ELECTRONICALLY VERIFIED REPORT Jeovany Ortiz M.D. at 07/26/2016 7:05 AM Orion TD: 07/23/2016 08:22 JOB #: [id number] MEDICAL IMAGING REPORT Page 1 of 1 COPY
--- NOTE | ~2016-07-22 | EKG ---
PATIENT: KENIA NEGRON UNIT #: [id number] Ventricular Rate: 86 BPM Atrial Rate: 86 BPM P-R Interval: 164 ms QRS Duration: 70 ms Q-T Interval: 364 ms QTC Calculation(Bezet): 435 ms P Taft: 39 degrees Calculated R Taft: -56 degrees Calculated T Taft: 49 degrees Diagnosis Line: Sinus rhythm with Premature supraventricular Diagnosis Line: complexes Diagnosis Line: Left axis deviation Diagnosis Line: Anteroseptal infarct , age undetermined Diagnosis Line: Abnormal ECG Diagnosis Line: No previous ECGs available Diagnosis Line: Confirmed by MACY RODRIGUEZ MD ([id number]) on 07/25/2016 Diagnosis Line: 9:42:15 AM INTERPRETING MD: JENNIFER BENTON
--- NOTE | ~2016-07-22 | CR72 ---
[facility] A Service of [facility] RADIOLOGY TEXT RESULTS PATIENT: KENIA NEGRON LOCATION: [facility] : 37 UNIT #: [id number] AGE: [address]: Hansa Hernandez MD SEX: F ORDER DR: [id number] [facility] [address] [place], [place] [address] [id number] E MR#: [id number] Acc #: [id number] NAME: KENIA NEGRON : 1935 SEX: F STUDY DATE/TIME: 07/22/2016 19:32 UNIT: [facility] ROOM: STUDY DESCRIPTION: CR Chest Single View Portable Attending Physician: Hansa Hernandez M.D. Ordering Physician: Hansa Hernandez M.D. Primary Care Physician: Yessica Callejas M.D. MEDICAL IMAGING REPORT This report is preliminary unless electronic signature is present EXAM Portable chest 07/22/2016 HISTORY Shortness of breath and chest congestion and chest pain for 2 days. FINDINGS The heart is enlarged but stable compared with 02/04/2016. Thoracic aorta is minimally calcified and ectatic. The lungs are clear. There are no pleural effusions. Right humeral prosthesis is noted. IMPRESSION No active pulmonary disease. Dictated by... Darin Montana M.D. THIS IS AN ELECTRONICALLY VERIFIED REPORT Darin Montana M.D. at 07/23/2016 10:46 AM BRAD/carrie TD: 07/23/2016 08:27 JOB #: [id number] MEDICAL IMAGING REPORT Page 1 of 1 COPY
[~2016-07-22 19:12] MED LIST changes: +DIFLUCAN100 MG PO; +HYDRALAZINE HCL50 MG PO; +HYDROCODON-ACE1 EAC5 PO; +LIPITOR40 MG PO; +OMNICEF300 M1 PO
[2016-07-22 19:35] LABS: BASOPHIL% 0.4 % (0-2.5); DIFF IND YES; EOSINOPHIL# 0.1 X10e3 (0-0.7); EOSINOPHIL% 1.2 % (0.0-7.0); HEMOGLOBIN 11.5 gm/dL (12.0-16.0); LYMPHOCYTE# 1.7 X10e3 (1.0-3.5); LYMPHOCYTE% 27.9 % (17.0-45.0); MEAN CELL VOLUME 96.9 FL (83-96); MEAN CORPUSCULAR HEMOGLOBIN 30.2 PG (28-34); MEAN CORPUSCULAR HGB CONC 31.2 g/dL (30-36); MEAN PLATELET VOLUME 8.4 FL (6.5-11.5); MONOCYTE# 0.1 X10e3 (0-1.0); MONOCYTE% 2.3 % (3.0-12.0); NEUTROPHIL# 4.2 X10e3 (1.5-7.1); NEUTROPHIL% 68.2 % (40-75); PLATELET COUNT 222 X10e3 (140-420); RED BLOOD COUNT 3.82 X10e (3.90-5.30); RED CELL DISTRIBUTION WIDTH 23.9 % (11.0-15.5); WHITE BLOOD COUNT 6.2 X10e3 (4.0-10.5)
[2016-07-22 19:46] LABS: PROTHROMBIN TIME (PATIENT) 10.7 SECONDS (9.6-11.5)
[2016-07-22 19:47] LABS: POC - CKMB 1.1 ng/mL (0.0-7.9); POC - TROPONIN <0.05 ng/mL (<=0.05)
[2016-07-22 19:53] LABS: ALBUMIN SERUM 3.9 g/dL (3.5-5.0); BILIRUBIN, DIRECT 0.3 mg/dL (0.0-0.2); BILIRUBIN,INDIRECT 1.2 mg/dL (0.0-0.9); BILIRUBIN,TOTAL 1.5 mg/dL (0.2-2.0); BUN/CREATININE RATIO 15.71; CALCIUM SERUM 9.3 mg/dL (8.4-10.2); CREATININE SERUM 1.4 mg/dL (0.6-1.4); GLOM FILT RATE Estimated 35.6 mL/min (>60); POTASSIUM 4.1 mmol/L (3.5-5.1); PROTEIN TOTAL SERUM 6.6 g/dL (6.0-8.3)
[2016-07-22 20:02] LABS: PLATELET ESTIMATE NORMAL (NORMAL)
[2016-07-22 20:03] LABS: ACANTHOCYTES PRESENT; OVALOCYTES PRESENT; POIKILOCYTOSIS MOD; STOMATOCYTE PRESENT
[2016-07-22 20:04] LABS: SPHEROCYTE SL; TEAR DROP CELLS PRESENT
[2016-07-22 21:34] LABS: URINE SOURCE CLEAN CATCH
[2016-07-22 21:53] LABS: URINE APPEARANCE CLEAR; URINE BILIRUBIN NEG (NEG); URINE BLOOD NEG (NEG); URINE COLOR YELLOW; URINE GLUCOSE NEG (NEG); URINE KETONE 1+ (NEG); URINE LEUKOCYTE ESTERASE NEG (NEG); URINE NITRATE NEG (NEG); URINE PH 7.5 (5-8); URINE PROTEIN 2+ (NEG); URINE SPECIFIC GRAVITY 1.015 (1.003-1.035); URINE UROBILINOGEN 0.2 MG/DL (NEG)
[2016-07-22 21:57] LABS: CULTURE INDICATED? YES; URBCS1 AUWI 0-2 /[HPF] (0-2); URINE BACTERIA AUWI NEG (NEGATIVE); URINE SQUAMOUS EPITHELIAL CELL NONE SEEN /[HPF]
== END 2016-07-23 01:42 | disposition home or self-care (01) ==
LOC: CED 19:12
PROVIDERS: Emergency Medicine
DX: M13.851 Other specified arthritis, right hip (principal); E03.9 Hypothyroidism, unspecified; F41.9 Anxiety disorder, unspecified; K21.9 Gastro-esophageal reflux disease without esophagitis; Z90.710 Acquired absence of both cervix and uterus; Z88.2 Allergy status to sulfonamides
CPT/HCPCS: 36415; 71010; 73502; 78582; 80048; 80076; 81003; 82553; 83690; 84484; 85025; 85379; 85610; 87086; 93005; 99284; A9540; A9567

== ENCOUNTER 2016-08-10 14:10 | Inpatient (IN) | payer MEDICARE, BC ==
--- NOTE | ~2016-08-10 | EKG ---
PATIENT: KENIA NEGRON UNIT #: [id number] Ventricular Rate: 59 BPM Atrial Rate: 56 BPM QRS Duration: 74 ms Q-T Interval: 434 ms QTC Calculation(Bezet): 429 ms Calculated R [employer]: -36 degrees Calculated T [employer]: 42 degrees Diagnosis Line: Sinus bradycardia Diagnosis Line: Left axis deviation Diagnosis Line: Low voltage QRS Diagnosis Line: Septal infarct , age undetermined Diagnosis Line: Abnormal ECG Diagnosis Line: No previous ECGs available Diagnosis Line: Confirmed by BRENDA MAGANA MD ([id number]) on Diagnosis Line: 08/14/2016 3:12:30 PM INTERPRETING MD: IZZY BENTON
--- NOTE | ~2016-08-10 | CO ---
Unit #: [id number] #: [id number] Patient: KENIA NEGRON [id number] [address] [place], [place] [address] [id number] I MR#: [id number] NAME: KENIA NEGRON. ROOM: 325 Age: 81 Sex: F Admission Date: 08/10/2016 : 1935 Attending Physician: Christine Lu M.D. Primary Care Physician: Yessica Callejas M.D. Consultation Date: 08/11/2016 CONSULTATION REPORT REASON FOR CONSULTATION Ftxrx-bt-wobnevl diastolic congestive heart failure. HISTORY OF PRESENT ILLNESS This is a 81-year-old white female, who is known to our practice, sees Dr. Almendarez, who came to the emergency room with complaints of weakness, short of breath especially with minimal exertion. I felt her chest was congested. According to the patient, the patient states that [place] the country [place] . She came home later that evening and was very fatigued and exhausted. She says she started noticing that she was more short of breath with minimal exertion. Yesterday, she just continued to feel worse especially with dyspnea with exertion. She went to see Dr. Callejas. They evaluated her and thought she might have fluid in her lungs, so they sent her to the hospital for further evaluation and management. She denies any lower extremity edema. She denies any chest pain; pain in her neck, bilateral jaws, shoulders, arms, or elbow. She denies any palpitations. No dizziness, presyncope, or syncope. She has occasional cough, but no fever or chills. We just felt like her chest is congested. The patient was taken to the emergency room, the patient's blood pressure was 138/63, heart rate of 58, respirations are 18, temperature 98.3, and O2 saturation was 97% on room air. Her chest x-ray did not show anything acute. EKG shows sinus rhythm. Initial labs, her creatinine is up to 1.7. Her BNP is 982. Hemoglobin 9.7 and hematocrit 31.2. Initial cardiac enzymes are negative. Chest x-ray did not show anything acute. The patient will be admitted for further evaluation, management, and treated for some mild exacerbation of her COPD and sbgmi-vz-diswepc diastolic heart failure. PAST MEDICAL HISTORY 1. Hypertension. 2. Hyperlipidemia. 3. Paroxysmal atrial tachycardia and paroxysmal atrial fibrillation, not on chronic anticoagulation. 4. Cardiac cath, 08/2015; left main, LAD, and circumflex were normal with 60% stenosis in the RCA and ostial to the PDA. 5. On 11/2015, 2D echo, LVEF is 60% with moderate mitral regurgitation, vhnm-vf-zdaclcqk tricuspid regurgitation. 6. 24-hour Holter monitor, 12/2015 revealed a 1.9 second pause. Frequent PACs. Atrial tachycardia. 7. COPD. 8. Rheumatoid arthritis. 9. Chronic kidney disease. 10. Hypothyroidism. 11. Iron deficiency anemia. Had an EGD and colonoscopy, 01/2016. Unit #: [id number] #: [id number] Patient: KENIA NEGRON 12. History of diastolic congestive heart failure. 13. Chronic back pain. 14. Gastroesophageal reflux disease. 15. Nonsmoker. PAST SURGICAL HISTORY 1. Partial hysterectomy. 2. Tonsillectomy. 3. Repair of a rectocele. 4. Lumbar fusion with rods. 5. Right shoulder replacement. 6. Bilateral cataract surgery. 7. Laparoscopic cholecystectomy. 8. Surgery on the right knee. HOME MEDICATIONS 1. Neurontin 100 mg p.o. three times daily. 2. Folic acid 1 mg p.o. daily. 3. Methotrexate 2.5 mg p.o. six tablets every seven days. 4. Senokot 8.6 p.o. at bedtime. 5. Alprazolam 0.25 mg p.o. daily p.r.n. 6. Aspirin 81 mg p.o. daily. 7. Mag oxide 400 mg p.o. twice daily. 8. Hydrocodone/acetaminophen 10/325 one tablet p.o. 3 times daily p.r.n. 9. Celexa 20 mg p.o. daily. 10. Isosorbide 10 mg p.o. twice daily. 11. Lipitor 40 mg p.o. at bedtime. 12. Iron sulfate 159 mg p.o. daily. 13. Hydralazine 50 mg p.o. twice daily. 14. Levothyroxine 25 mcg p.o. daily. 15. Vitamin D2 50,000 units p.o. weekly. 16. Metoprolol 50 mg p.o. three times daily. 17. Zantac 150 mg p.o. twice daily. 18. Prednisone 3 mg p.o. daily. 19. Allopurinol 300 mg p.o. daily. 20. Nitrostat 0.4 mg sublingual p.r.n. for chest pain. ALLERGIES Sulfonamides SOCIAL HISTORY The patient ambulates with a cane and uses a walker on occasion. She has low back pain that limits her exertion. She is a lifelong nonsmoker. No alcohol or illicit drug abuse. FAMILY HISTORY Her sister and brother both had from strokes and both her parents had some type of heart problems. REVIEW OF SYSTEMS See details in HPI. PHYSICAL EXAMINATION GENERAL: On exam, Ms. Negron is a 81-year-old white female, in no acute respiratory distress. She is awake, alert, and oriented. VITAL SIGNS: Blood pressure is 160/78, heart rate 58, respirations are 16, temperature 97.5, and O2 saturations 96% on room air. NECK: Trachea midline. No thyromegaly or lymphadenopathy. Normal Unit #: [id number] #: [id number] Patient: KENIA NEGRON carotid upstrokes. No jugular venous distention. HEART: S1 and S2. Regular rate and rhythm. Soft systolic murmur left sternal border. LUNGS: Diminished with a few fine rales in the bases, very diminished. ABDOMEN: Soft and nontender. Positive bowel sounds present. EXTREMITIES: Pedal pulses are palpable with faint trace pedal edema. DIAGNOSTIC DATA LABORATORY RESULTS: Glucose is 84, BUN 24, and creatinine 1.7. EGFR is 28.2, sodium 138, potassium 4.6, chloride is 105, CO2 of 26, calcium is 8.8, total protein 6.2, albumin 3.9, bilirubin total is 0.6. AST 20, ALT 11, and alkaline phosphatase is 54. BNP is 982. Lactic acid is 1.1. WBC is 4.2, hemoglobin 9.7, hematocrit 31.2, and platelets are 326. Initial cardiac enzymes; CK-MB is 1.6 troponin less than 0.05. Chest x-ray shows no acute cardiopulmonary findings. Stable mild cardiac enlargement and right shoulder replacement, otherwise unremarkable. EKG shows normal sinus rhythm with ventricular rate of 59 beats per minute. Left axis deviation, septal Q-waves, age undetermined. Poor R-wave progression. IMPRESSION 1. Zjvth-cq-ljucjgg respiratory failure with exacerbation of chronic obstructive pulmonary disease. 2. Sdiqh-mq-keiedgw diastolic congestive heart failure. Last echo, 11/2015, revealed left ventricular ejection fraction of 60% with moderate mitral regurgitation, and rxwf-lw-phnopqlq tricuspid regurgitation. 3. Hypertension. 4. Hyperlipidemia. 5. History of paroxysmal atrial tachycardia and paroxysmal atrial fibrillation, not on chronic anticoagulation. 6. History of anemia, iron deficiency. 7. Rheumatoid arthritis. 8. Chronic kidney disease. 9. Chronic back pain. 10. Gastroesophageal reflux disease. 11. Nonsmoker. PLAN 1. Gently diurese with a dose of IV Bumex. We will plant changer to p.o. Lasix this afternoon. Strict intake and output and daily weight. 1800 mL 24-hour fluid restriction. The patient on interview denies any overage on her fluid restriction or salt restriction. 2. Heart rate and blood pressure are currently stable. Continue on her other cardiac medications, which include Mag oxide, aspirin, isosorbide, Lipitor, hydralazine, and metoprolol. The patient is on daily Lovenox. 3. On exam, there is no signs or symptoms of acute unstable angina. Cardiac enzymes are negative. EKG does not show anything acute. Further recommendations pending per Dr. Almendarez. Thank you very much for allowing us to assist in the care. Dictated by... Eleanor Levin A.P.R.N. [facility] Unit #: [id number] #: [id number] Patient: KENIA NEGRON TD: 08/11/2016 16:17 JOB #: [id number] CONSULTATION REPORT Page 1 of 1 X Eleanor Levin APRN CONSULTATION REPORT
--- NOTE | ~2016-08-10 | DS ---
Unit #: [id number] #: [id number] Patient: KENIA NEGRON [id number] [address] [place], [place] [address] [id number] I MR#: [id number] NAME: KENIA NEGRON. ROOM: 325 Age: 81 Sex: F Admission Date: 08/10/2016 : 1935 Discharge Date: 08/12/2016 Attending Physician: Christine Lu M.D. Primary Care Physician: Yessica Callejas M.D. DISCHARGE SUMMARY FINAL DIAGNOSIS Dyspnea. OTHER DIAGNOSES 1. Acute on chronic diastolic congestive heart failure. 2. Rheumatoid arthritis. 3. Chronic obstructive pulmonary disease with exacerbation. CONSULTANTS Dr. Almendarez. PROCEDURES I believe, none. Ms. Negron is a 81-year-old with COPD and history of rheumatoid arthritis who presented to the emergency room with increasing shortness of air. I actually listened to her because she was sitting in the ruelas of radiology and she had some inspiratory crackles at the bases bilaterally. Unfortunately I could not recall what she sounded like the last time I listened. However, when she was in ER, her saturation was 97% and documented that that was on room air. She had a chest x-ray that was officially read as no acute changes. There was no report of suggestion of pulmonary edema. Her BNP was 982 on admission, which actually of course is elevated. Her BUN and creatinine on admission were 24 and 1.7. Repeat today is 37 and 1.6. Therefore, I do not think it has changed much. She was seen by Dr. Almendarez who changed her to Lasix 20 mg p.o. daily and stopped IV Bumex that she was started on when she came in. Her Solu-Medrol was tapered down and stopped. As of today, she is doing better and ready for discharge. On exam, she did have some inspiratory crackles at the bases. From my recollection, this is actually less than it was when she first came in. She will be discharged on the following medicines. DISCHARGE MEDICATIONS 1. Prednisone 30 mg, that is 10 mg 3 daily and then decreasing by 10 mg every 3 days and when she gets to the end of that, she is to take 3 mg p.o. daily just like her old dose. 2. Gabapentin 100 mg p.o. t.i.d. 3. Mag ox 400 mg b.i.d. 4. Celexa 20 mg p.o. daily. 5. Methotrexate 2.5 mg p.o. q. week, although she takes 15 mg I believe. 6. Xanax 0.25 mg daily p.r.n. 7. Lopressor 50 mg p.o. t.i.d. 8. Senokot 8.6 mg at bedtime. Unit #: [id number] #: [id number] Patient: KENIA NEGRON 9. Lasix 20 mg p.o. b.i.d. 10. Lipitor 40 mg p.o. daily. 11. Hydralazine 50 mg p.o. b.i.d. 12. Iron 324 mg p.o. daily. 13. Zantac 150 mg p.o. b.i.d. 14. Allopurinol 300 mg p.o. daily. 15. Aspirin 81 mg p.o. daily. 16. Hydrocodone 10/325, that is a home medicine, I did not write it. 17. Synthroid 0.025 mg daily. 18. Ismo 10 mg p.o. b.i.d. 19. Nitrostat 0.4 mg sublingual p.r.n. 20. Folic acid 1 mg p.o. daily. 21. Vitamin D 50,000 units p.o. weekly. FOLLOWUP She should followup with us in two weeks. She should followup with Dr. Almendarez as arranged. I will have home health see her. Dictated by... Jesus Jacobs/kaushik TD: 08/13/2016 06:59 JOB #: [id number] CC: Mariel Almendarez M.D. DISCHARGE SUMMARY Page 1 of 1 X Arvind Pressley MD X DISCHARGE SUMMARY
--- NOTE | ~2016-08-10 | CR63 ---
[facility] A Service of [facility] RADIOLOGY TEXT RESULTS PATIENT: KENIA NEGRON LOCATION: [facility] 325-01 : 37 UNIT #: [id number] AGE: [address]: Nito Lu MD SEX: F ORDER DR: [id number] [facility] [address] [place], [place] [address] [id number] I MR#: [id number] #: [id number] NAME: KENIA NEGRON. : 1935 SEX: F STUDY DATE/TIME: 08/10/2016 17:19 UNIT: CEDOF ROOM: 25759 STUDY DESCRIPTION: CR Chest 2 View Ordering Physician: Ilir Amaya M.D. Primary Care Physician: Yessica Callejas M.D. MEDICAL IMAGING REPORT This report is preliminary unless electronic signature is present EXAM PA and lateral chest 08/10/2016 HISTORY Possible pleural effusion and shortness of breath. Chest pain when breathing. Symptoms began yesterday per patient. COMPARISON AP portable chest 07/22/2016. FINDINGS No acute airspace disease. Focal eventration left hemidiaphragm, unchanged. Stable cardiomegaly. No pleural effusion or pneumothorax. Right shoulder replacement changes. Surgical changes seen in the lumbar spine on the lateral radiograph, There are degenerative disc endplate changes in the thoracic spine. IMPRESSION 1. No acute cardiopulmonary findings. 2. Stable mild cardiac enlargement. 3. Right shoulder replacement. 4. Left hemidiaphragm eventration, unchanged from previous examinations. Dictated by... Isabel Wild M.D. THIS IS AN ELECTRONICALLY VERIFIED REPORT Isabel Wild M.D. at 08/14/2016 8:40 AM LLH/ranjit TD: 08/10/2016 23:16 [facility] A Service of [facility] RADIOLOGY TEXT RESULTS PATIENT: KENIA NEGRON LOCATION: [facility] 325-01 : 37 UNIT #: [id number] AGE: [address]: Nito Lu MD SEX: F ORDER DR: JOB #: [id number] MEDICAL IMAGING REPORT Page 1 of 1 COPY
--- NOTE | ~2016-08-10 | HP ---
Unit #: [id number] #: [id number] Patient: KENIA NEGRON [id number] [address] [place], [place] [address] [id number] I MR#: [id number] NAME: KENIA NEGRON. ROOM: 325 Age: 81 Sex: F Admission Date: 08/10/2016 : 1935 Attending Physician: Nito Lu Primary Care Physician: Yessica Callejas M.D. HISTORY AND PHYSICAL This is a 81-year-old lady with history of COPD. Patient has been having upper respiratory tract type illness. She is having progressive shortness of air, paroxysmal nocturnal dyspnea, dyspnea on exertion. Patient is having some chest tightness. Do not see real significant chest pain. She is having some cough productive of white sputum. The patient is having progressive worsening of her hypertension. The patient in the emergency room was found to be significantly anemic. The patient came in with a creatinine of 1.7, which is above her usual, therefore, we are admitting her for CHF exacerbation. PAST MEDICAL HISTORY 1. Significant for history of COPD/emphysema. 2. History of chronic hypoxic respiratory failure on 2 L of nocturnal oxygen. 3. Rheumatoid arthritis, patient is on chronic steroids. 4. Atrial fibrillation. 5. Hypertension. 6. Hyperlipidemia. 7. Degenerative joint disease. 8. Chronic back pain. 9. Depression. 10. Anxiety. 11. Chronic kidney disease. PAST SURGICAL HISTORY Significant for partial hysterectomy, tonsillectomy, history of rectocele, history of lumbar fusion, history of right shoulder replacement. ALLERGIES Patient has a history of allergy to sulfa. SOCIAL HISTORY Patient denies any alcohol, tobacco, or polysubstance use. No occupational exposures. FAMILY HISTORY Significant for lung cancer in a sister and two brothers. HOME MEDICATIONS Neurontin 100 mg 3 times a day; folic acid 1 g daily; methotrexate 2.5 mg 6 tablets, that would be 15 mg every Saturday; Senna 8.6 mg at bedtime; alprazolam 0.25 mg p.o. daily p.r.n.; aspirin 81 mg daily; mag oxide 400 mg twice daily; hydrocodone/acetaminophen 1 tablet p.o. 3 times daily; Celexa 20 mg daily; Isordil 10 mg twice daily; Lipitor 40 mg at bedtime; Unit #: [id number] #: [id number] Patient: KENIA NEGRON iron 159 mg p.o. daily; hydralazine 50 mg twice daily; levothyroxine 15 mg daily; vitamin B2 15,000 units weekly; Lopressor 50 mg 3 times a day; zantac 150 mg twice daily; prednisone 3 mg daily; allopurinol 300 mg daily; Nitrostat 0.4 mg sublingual daily. REVIEW OF SYSTEMS Positive for shortness of breath, orthopnea, and otherwise a 12 point review of systems is normal. PHYSICAL EXAMINATION VITAL SIGNS: T. current 97.5, pulse 57, respiratory rate 16, blood pressure 160/78, satting 96% on 2 L nasal cannula. HEENT: Extraocular movements are intact. NECK: Shows no accessory muscle use. CHEST: Showed decreased breath sounds bilaterally. CARDIOVASCULAR: Regular rate. No gallop. ABDOMEN: Soft, nontender, and nondistended. EXTREMITIES: No evidence of edema. Actually shows +1 to +2 edema. DIAGNOSTIC STUDIES LABORATORY DATA: Lactic acid 1.1. Procalcitonin less than 0.05. Cardiac enzymes negative x2. BNP is 982. White count 4.2, hemoglobin 9.7, platelets 326. BUN and creatinine 24/1.7. IMAGING STUDIES: Chest x-ray shows no acute cardiopulmonary findings. ASSESSMENT AND PLAN 1. CHF exacerbation: I am going to consult cardiology. 2. COPD: Will do a short burst of steroids. Continue home medications. I am not entirely sure that this is a COPD exacerbation. 3. Renal insufficiency: I believe this is due to congestive heart failure issues, therefore will do a onetime dose of diuretics in the morning and thereafter will defer the cards for that. Dictated by Jesus Londono TD: 08/11/2016 11:40 JOB #: [id number] HISTORY AND PHYSICAL Page 1 of 1 X Nito Lu MD HISTORY AND PHYSICAL
[2016-08-10 16:00] LABS: BASOPHIL% 0.8 % (0-2.5); EOSINOPHIL# 0.1 X10e3 (0-0.7); EOSINOPHIL% 2.4 % (0.0-7.0); HEMATOCRIT 31.2 % (35.0-45.0); HEMOGLOBIN 9.7 gm/dL (12.0-16.0); LYMPHOCYTE# 1.3 X10e3 (1.0-3.5); LYMPHOCYTE% 30.4 % (17.0-45.0); MEAN CELL VOLUME 102.6 FL (83-96); MEAN CORPUSCULAR HEMOGLOBIN 32.1 PG (28-34); MEAN CORPUSCULAR HGB CONC 31.3 g/dL (30-36); MEAN PLATELET VOLUME 8.5 FL (6.5-11.5); MONOCYTE# 0.3 X10e3 (0-1.0); MONOCYTE% 8.1 % (3.0-12.0); NEUTROPHIL# 2.5 X10e3 (1.5-7.1); NEUTROPHIL% 58.3 % (40-75); PLATELET COUNT 326 X10e3 (140-420); RED BLOOD COUNT 3.04 X10e (3.90-5.30); RED CELL DISTRIBUTION WIDTH 23.7 % (11.0-15.5); WHITE BLOOD COUNT 4.2 X10e3 (4.0-10.5)
[2016-08-10 16:01] LABS: DIFF IND YES
[2016-08-10 16:17] LABS: ALBUMIN SERUM 3.9 g/dL (3.5-5.0); BILIRUBIN, DIRECT 0.1 mg/dL (0.0-0.2); BILIRUBIN,INDIRECT 0.5 mg/dL (0.0-0.9); BILIRUBIN,TOTAL 0.6 mg/dL (0.2-2.0); BUN/CREATININE RATIO 14.11; CALCIUM SERUM 8.8 mg/dL (8.4-10.2); CREATININE SERUM 1.7 mg/dL (0.6-1.4); GLOM FILT RATE Estimated 28.2 mL/min (>60); PLATELET ESTIMATE NORMAL (NORMAL); POTASSIUM 4.6 mmol/L (3.5-5.1); PROTEIN TOTAL SERUM 6.2 g/dL (6.0-8.3)
[2016-08-10 16:18] LABS: STOMATOCYTE PRESENT
[2016-08-10 16:35] LABS: POC - CKMB 1.3 ng/mL (0.0-7.9); POC - TROPONIN <0.05 ng/mL (<=0.05)
[2016-08-10 18:38] LABS: POC - CKMB 1.6 ng/mL (0.0-7.9); POC - TROPONIN <0.05 ng/mL (<=0.05)
[2016-08-10] MEDS ORDERED: FOLIC ACID1 MG PO (21:28)
[2016-08-10] MEDS ORDERED: NEURONTIN100 MG PO (21:28)
[2016-08-10] MEDS ORDERED: METHOTREXATE2.5 MG PO (21:29)
[2016-08-10] MEDS ORDERED: ASPIRIN81 MG PO (21:30)
[2016-08-10] MEDS ORDERED: SENNA8.6 M1 PO (21:30)
[2016-08-10] MEDS ORDERED: ALPRAZOLAM0.25 MG PO (21:30)
[2016-08-10] MEDS ORDERED: HYDROCODON-ACE1 EAC5 PO (21:31)
[2016-08-10] MEDS ORDERED: LIPITOR40 MG PO (21:31)
[2016-08-10] MEDS ORDERED: CELEXA20 MG PO (21:31)
[2016-08-10] MEDS ORDERED: MAG-OX 400400 M1 PO (21:31)
[2016-08-10] MEDS ORDERED: ISOSORBIDE MONO10 MG PO (21:31)
[2016-08-10] MEDS ORDERED: HYDRALAZINE HCL50 MG PO (21:32)
[2016-08-10] MEDS ORDERED: LEVOTHYROXINE25 MC1 PO (21:32)
[2016-08-10] MEDS ORDERED: IRON159 MG PO (21:32)
[2016-08-10] MEDS ORDERED: PREDNISONE1 MG PO (21:33)
[2016-08-10] MEDS ORDERED: LOPRESSOR PO (21:33)
[2016-08-10] MEDS ORDERED: ZANTAC150 M1 PO (21:33)
[2016-08-10] MEDS ORDERED: VITAMIN D250000 UNIT PO (21:33)
[2016-08-10] MEDS ORDERED: NITROSTAT0.4 MG SL (21:34)
[2016-08-10] MEDS ORDERED: ALLOPURINOL300 MG PO (21:34)
[2016-08-12 04:37] LABS: HEMATOCRIT 29.6 % (35.0-45.0); HEMOGLOBIN 9.5 gm/dL (12.0-16.0); MEAN CELL VOLUME 100.6 FL (83-96); MEAN CORPUSCULAR HEMOGLOBIN 32.4 PG (28-34); MEAN CORPUSCULAR HGB CONC 32.2 g/dL (30-36); MEAN PLATELET VOLUME 8.6 FL (6.5-11.5); RED BLOOD COUNT 2.94 X10e (3.90-5.30); RED CELL DISTRIBUTION WIDTH 23.7 % (11.0-15.5); WHITE BLOOD COUNT 4.5 X10e3 (4.0-10.5)
[2016-08-12 04:55] LABS: BUN/CREATININE RATIO 23.12; CALCIUM SERUM 8.8 mg/dL (8.4-10.2); CREATININE SERUM 1.6 mg/dL (0.6-1.4); GLOM FILT RATE Estimated 30.3 mL/min (>60); MAGNESIUM 1.9 mg/dL (1.6-3.0); PHOSPHOROUS 3.4 mg/dL (2.5-4.6); POTASSIUM 4.6 mmol/L (3.5-5.1)
[2016-08-12] MEDS ORDERED: LASIX20 MG PO (17:07)
[2016-08-12] MEDS ORDERED: PREDNISONE10 M1 PO (17:09)
== END 2016-08-12 18:25 | disposition home or self-care (01) | DRG 291 ==
LOC: CED 14:10 → CEDOF 20:27 → C3A PCU 08-11 01:45
PROVIDERS: Emergency Medicine; Internal Medicine Cardiovascular Disease; Internal Medicine Pulmonary Disease
DX: I11.0 Hypertensive heart disease with heart failure (principal); J96.21 Acute and chronic respiratory failure with hypoxia; I48.0 Paroxysmal atrial fibrillation; I47.1 Supraventricular tachycardia; J44.1 Chronic obstructive pulmonary disease with (acute) exacerbation; I50.33 Acute on chronic diastolic (congestive) heart failure; E78.5 Hyperlipidemia, unspecified; I08.1 Rheumatic disorders of both mitral and tricuspid valves; I13.0 Hypertensive heart and chronic kidney disease with heart failure and stage 1 through stage 4 chronic kidney disease, or unspecified chronic kidney disease; N18.9 Chronic kidney disease, unspecified; E03.9 Hypothyroidism, unspecified; D50.9 Iron deficiency anemia, unspecified; K21.9 Gastro-esophageal reflux disease without esophagitis; M54.9 Dorsalgia, unspecified; Z90.711 Acquired absence of uterus with remaining cervical stump; Z98.49 Cataract extraction status, unspecified eye; Z90.49 Acquired absence of other specified parts of digestive tract; Z79.82 Long term (current) use of aspirin; Z79.52 Long term (current) use of systemic steroids
CPT/HCPCS: 36415; 71020; 80048; 80076; 82308; 82553; 82947; 83605; 83735; 83880; 84100; 84484; 85025; 85027; 93005; 99285; J1650; J2920

== ENCOUNTER 2016-08-22 11:55 | Inpatient (IN) | payer MEDICARE, BC ==
--- NOTE | ~2016-08-22 | CR72 ---
[facility] A Service of [facility] & [facility] RADIOLOGY TEXT RESULTS PATIENT: KENIA NEGRON LOCATION: [facility] 56- : 37 UNIT #: [id number] AGE: [address]: Nito Lu MD SEX: F ORDER DR: [id number] [facility] [address] [place], [place] [address] [id number] I MR#: [id number] Acc #: [id number] NAME: KENIA NEGRON : 1935 SEX: F STUDY DATE/TIME: 08/22/2016 12:15 UNIT: [facility] ROOM: [facility] STUDY DESCRIPTION: CR Chest Single View Portable Attending Physician: Christine Lu M.D. Referring Physician: Yessica Callejas M.D. Ordering Physician: Corby Garcia D.O. Primary Care Physician: Yessica Callejas M.D. MEDICAL IMAGING REPORT This report is preliminary unless electronic signature is present EXAM Chest portable, 08/22/2016 12:15 hours HISTORY 81-year-old woman with hypotensive episode and syncope today. COMPARISON 08/10/2016 FINDINGS Single portable view of the chest demonstrates normal heart size with stable tortuous aorta. The pulmonary vascularity is normal. The lungs are clear and there are no effusions. Focal areas of eventration of the left mid hemidiaphragm and the medial right hemidiaphragm unchanged. Postop change right shoulder replacement. IMPRESSION No acute cardiopulmonary findings. No appreciable change from 08/10/2016. Dictated by... Abi Juan M.D. THIS IS AN ELECTRONICALLY VERIFIED REPORT Abi Juan M.D. at 08/23/2016 9:30 AM Shankar TD: 08/22/2016 14:03 JOB #: [id number] MEDICAL IMAGING REPORT Page 1 of 1 COPY
--- NOTE | ~2016-08-22 | CR219 ---
[facility] A Service of [facility] RADIOLOGY TEXT RESULTS PATIENT: KENIA NEGRON LOCATION: [place] [address] : 37 UNIT #: [id number] AGE: [address]: Nito Lu MD SEX: F ORDER DR: [id number] [facility] [address] [place], [place] [address] [id number] E MR#: [id number] Acc #: [id number] NAME: KENIA NEGRON : 1935 SEX: F STUDY DATE/TIME: 08/22/2016 12:43 UNIT: [facility] ROOM: STUDY DESCRIPTION: CR Sacrum and Coccyx Min 2 Vie Attending Physician: Corby Garcia D.O. Referring Physician: Yessica Callejas M.D. Ordering Physician: Corby Garcia D.O. Primary Care Physician: Yessica Callejas M.D. MEDICAL IMAGING REPORT This report is preliminary unless electronic signature is present EXAM Sacrum and coccyx, 08/22/2016 12:43 hours HISTORY 81-year-old woman with severe low back pain for 3 days, right tailbone region. History of syncopal episode with fall [address] abdomen and pelvis 05/07/2016 with sagittal and coronal reconstructions. FINDINGS AP, lateral views of the sacrum and coccyx are performed. There is lumbar fusion hardware present. There is mild degenerative change at the sacroiliac joints. No definite sacral fracture is seen. There is degenerative spurring at the pubic symphysis. IMPRESSION The films are limited due to osteopenia and difficulty in positioning the patient. Lumbar hardware is present in the lower lumbar spine. Bones are osteopenic without definite fracture seen. The sacroiliac joints appear symmetric. Given the degree of patient's pain, consider followup CT to exclude sacral fracture. Dictated by... Abi Juan M.D. THIS IS AN ELECTRONICALLY VERIFIED REPORT Abi Juan M.D. at 08/22/2016 5:50 PM CHILANGO/rashmi TD: 08/22/2016 14:58 JOB #: [id number] [facility] A Service of [facility] RADIOLOGY TEXT RESULTS PATIENT: KENIA NEGRON LOCATION: [facility] [id number] : 37 UNIT #: [id number] AGE: [address]: Nito Lu MD SEX: F ORDER DR: MEDICAL IMAGING REPORT Page 1 of 1 COPY
--- NOTE | ~2016-08-22 | CT71 ---
[facility] A Service of [facility] & [facility] RADIOLOGY TEXT RESULTS PATIENT: KENIA NEGRON LOCATION: [facility] 565[facility] : 37 UNIT #: [id number] AGE: [address]: Nito Lu MD SEX: F ORDER DR: [id number] [facility] [address] [place], [place] [address] [id number] E MR#: [id number] Acc #: [id number] NAME: KENIA NEGRON : 1935 SEX: F STUDY DATE/TIME: 08/22/2016 13:13 UNIT: [facility] ROOM: STUDY DESCRIPTION: CT Head Wo Contrast Attending Physician: Corby Garcia D.O. Referring Physician: Yessica Callejas M.D. Ordering Physician: Corby Garcia D.O. Primary Care Physician: Yessica Callejas M.D. MEDICAL IMAGING REPORT This report is preliminary unless electronic signature is present EXAM Head CT without contrast date of study is 08/22/2016 PROCEDURE Axial unenhanced head CT. This CT exam was performed with one or more of the following radiation dose reduction techniques: automatic control, adjustment of mA and/or kV according to patient size, and iterative reconstruction. COMPARISON Prior head CT most recent 09/29/2015. CLINICAL HISTORY 2 days status post syncopal history with fall and closed head injury, 2-day history of persistent dizziness. FINDINGS There is mild motion degradation. There is no convincing acute abnormality, there is no evidence of intracranial hemorrhage or mass or infarct, hydrocephalus or extraaxial fluid collection. There is mild age-appropriate volume loss. There are degenerative changes in the temporomandibular joints, but the skull base and calvaria are otherwise normal. The extracranial soft tissues are unremarkable. IMPRESSION Mild typical age related senescent change. No acute intracranial abnormality. Dictated by... Rubén Wadsworth M.D. THIS IS AN ELECTRONICALLY VERIFIED REPORT Rubén Wadsworth M.D. at 08/24/2016 2:17 PM STS. [facility] A Service of [facility] & [facility] RADIOLOGY TEXT RESULTS PATIENT: KENIA NEGRON LOCATION: [facility] [id number] : 37 UNIT #: [id number] AGE: [address]: Nito Lu MD SEX: F ORDER DR: BROWN/isha TD: 08/22/2016 15:45 JOB #: [id number] MEDICAL IMAGING REPORT Page 1 of 1 COPY
--- NOTE | ~2016-08-22 | HP ---
Unit #: [id number] #: [id number] Patient: KENIA NEGRON [id number] [address] [place], [place] [address] [id number] I MR#: [id number] NAME: KENIA NEGRON ROOM: 565 Age: 81 Sex: F Admission Date: 08/22/2016 : 1935 Attending Physician: Christine Lu M.D. Referring Physician: Yessica Callejas M.D. Primary Care Physician: Yessica Callejas M.D. HISTORY AND PHYSICAL HISTORY OF PRESENT ILLNESS This is a lady with a history of recent hospitalization for bronchitis and COPD. The patient has a history of fainting. She was brought in for presyncopal symptoms from Dr. Callejas's office and the patient is having no shortness of breath but dizziness and fatigue. When standing up, she feels lightheaded. The patient collapsed and lost consciousness temporarily. The patient hit her head and back. The CT scan of the head and sacrum appears normal. However, she has been asked to be admitted for workup of low blood pressure. PAST MEDICAL HISTORY COPD, emphysema on two liters nighttime oxygen, rheumatoid arthritis on chronic steroids, history of atrial fibrillation, diastolic CHF, hypertension, degenerative joint disease, hyperlipidemia, chronic depression, anxiety and chronic kidney disease. PAST SURGICAL HISTORY Partial hysterectomy, tonsillectomy, history of rectocele, history of lumbar fusion, history of right shoulder replacement. SOCIAL HISTORY The patient denies any alcohol, tobacco or polysubstance use. No history of occupational exposures. FAMILY HISTORY Lung cancer, sister and two brothers. ALLERGIES Sulfa. HOME MEDICATIONS 1. Folic acid 1 mg daily. 2. Methotrexate 50 mg weekly on Wednesdays. 3. Senna 17.5 mg at bedtime. 4. Alprazolam 0.25 mg daily. 5. Aspirin 81 mg daily. 6. Magnesium oxide 400 mg twice daily. 7. Hydrocodone/acetaminophen one tab p.o. three times daily. 8. Celexa 20 mg daily. 9. Imdur ER 10 mg twice daily. 10. Lipitor 40 mg at bedtime. 11. Hydralazine 50 mg twice daily. 12. Levothyroxine 25 mcg p.o. daily. 13. Vitamin D2 50,000 units p.o. weekly. Unit #: [id number] #: [id number] Patient: KENIA NEGRON 14. Lopressor 50 mg p.o. three times daily. 15. Zantac 150 mg p.o. twice daily. 16. Prednisone 5 mg every morning. 17. Allopurinol 300 mg daily. 18. Nitrostat 0.4 mg q.4 hours p.r.n. 19. Neurontin 100 mg p.o. three times daily. REVIEW OF SYSTEMS Dizziness, lightheadedness, presyncope, falls. No fevers. No chills. No nausea. No vomiting. Otherwise, a 12-point review of systems is negative. PHYSICAL EXAMINATION VITAL SIGNS: T-current 97.6. Pulse 56. Respiratory rate 16. Blood pressure 122/65. O2 sat 98% on two liters nasal cannula. HEENT: Extraocular muscles are intact. CHEST: Clear to auscultation bilaterally. CARDIOVASCULAR: Regular rate. No gallop. ABDOMEN: Soft, nontender, nondistended. EXTREMITIES: 1+ edema bilateral lower extremities. DIAGNOSTIC STUDIES LABORATORY: BNP 387 up from 254. Procalcitonin 0.11. Basic metabolic panel significant for BUN and creatinine of 33/1.6. ASSESSMENT AND PLAN 1. Presyncope likely secondary to low blood pressure. 2. Hypotension may be due to dehydration as creatinine is also elevated. 3. Acute renal insufficiency. Creatinine elevation. 4. History of acute on chronic diastolic congestive heart failure. 5. Rheumatoid arthritis. 6. Chronic COPD. 7. Atrial fibrillation. 8. Degenerative joint disease with chronic back pain. The patient is being fluid resuscitated. We are going to continue process for one more day and consult Cardiology, see if we can get renal function to improve closer to baseline. Dictated by Jesus Londono TD: 08/23/2016 14:04 JOB #: [id number] HISTORY AND PHYSICAL Page 1 of 1 X Nito Lu MD X HISTORY AND PHYSICAL
--- NOTE | ~2016-08-22 | EKG ---
PATIENT: KENIA NEGRON UNIT #: [id number] Ventricular Rate: 59 BPM Atrial Rate: 59 BPM P-R Interval: 182 ms QRS Duration: 84 ms Q-T Interval: 444 ms QTC Calculation(Bezet): 439 ms P [place]: 84 degrees Calculated R [place]: -35 degrees Calculated T [place]: 21 degrees Diagnosis Line: Sinus bradycardia with sinus arrhythmia Diagnosis Line: Left axis deviation Diagnosis Line: Low voltage QRS Diagnosis Line: Septal infarct (cited on or before 08-MAY-2016) Diagnosis Line: Abnormal ECG Diagnosis Line: When compared with ECG of 10-AUG-2016 16:50, Diagnosis Line: No significant change was found Diagnosis Line: Confirmed by ALDO TIERNEY MD ([id number]) on 08/23/2016 Diagnosis Line: 6:35:43 PM INTERPRETING MD: NIALL BENTON
--- NOTE | ~2016-08-22 | DS ---
Unit #: [id number] #: [id number] Patient: KENIA NEGRON [id number] [address] [place], [place] [address] [id number] I MR#: [id number] NAME: KENIA NEGRON ROOM: 565 Age: 81 Sex: F Admission Date: 08/22/2016 : 1935 Discharge Date: 08/26/2016 Attending Physician: Christine Lu M.D. Referring Physician: Yessica Callejas M.D. Primary Care Physician: Yessica Callejas M.D. DISCHARGE SUMMARY FINAL DIAGNOSES 1. Syncope/presyncope. 2. Diastolic dysfunction. 3. Paroxysmal atrial fibrillation. 4. Rheumatoid arthritis. 5. Chronic obstructive pulmonary disease. 6. Thrombocytopenia. CONSULTANTS Dr. Rudolph. PROCEDURES CT brain. HISTORY OF PRESENT ILLNESS AND HOSPITAL COURSE Ms. Negron is a 81-year-old female seen by me for COPD. We were asked to admit her because of syncope/presyncope. I believe this occurred at the office of her primary doctor, Dr. Callejas. She was admitted and Cardiology was requested to see her. She was seen by Dr. Rudolph who felt that this may be because of orthostatic hypotension. Therefore, hydralazine was decreased and metoprolol was decreased. It looks like amiodarone may have been added for the paroxysmal atrial fibrillation. She is doing better as of 08/26 and is ready for discharge. As mentioned, she had CT head done 08/22/2016 which revealed mild typical age-related senescent change but no acute intracranial abnormalities. She did have today a BUN of 25, creatinine 1.5. Blood pressure has omar acceptable, almost a little bit on the higher side. 167/73. Her hemoglobin was 9.4 today which is stable. That is, it has been in the 9s the whole time. Platelet count was a little bit low. Her platelet count was initially 83,000, now it is 112,000. This is a bit lower than it has been. It has dipped down in the past but it has been awhile since she has been any lower than 166 which was in January of 2016. Today, she was doing well and ready for discharge. DISCHARGE MEDICATIONS 1. Prednisone 3 mg q.a.m. (home medicine). 2. Cordarone 200 mg p.o. daily (new). 3. Magnesium oxide 400 mg b.i.d. 4. Neurontin 100 mg p.o. b.i.d. 5. Celexa 20 mg p.o. daily. 6. Methotrexate 15 mg p.o. weekly. 7. Xanax 0.25 mg daily p.r.n. (home medicine). 8. Lopressor 25 mg p.o. b.i.d. (change from Lopressor 50 t.i.d. previously). Unit #: [id number] #: [id number] Patient: KENIA NEGRON 9. Senokot daily at bedtime. 10. Lipitor 40 mg p.o. h.s. 11. Hydralazine 25 mg p.o. b.i.d. (change from hydralazine 50 p.o. b.i.d.). 12. Zyloprim 300 mg p.o. daily. 13. Aspirin 81 mg p.o. daily. 14. Hydrocodone 10/325 t.i.d. 15. She can continue her Zantac 150 mg p.o. b.i.d. 16. Continue Synthroid 0.025 mg daily. 17. Isosorbide 10 mg p.o. b.i.d. 18. Nitroglycerin sublingual p.r.n. 19. Folic acid 1 mg p.o. daily. 20. Vitamin D2 50,000 units p.o. weekly. ALLERGIES Include sulfa. DIET Healthy-heart diet. ACTIVITY As tolerated. DISCHARGE INSTRUCTIONS 1. We will ask [facility] to continue to follow her as they have already been following her. 2. She is to see Dr. Callejas in 2-3 weeks. 3. She should see me in about 3-4 weeks or so. Dictated by... Arvind Pressley M.D. EMILY/jane TD: 08/27/2016 23:02 JOB #: [id number] DISCHARGE SUMMARY Page 1 of 1 X Arvind Pressley MD X DISCHARGE SUMMARY
--- NOTE | ~2016-08-22 | CR72 ---
[facility] A Service of [facility] RADIOLOGY TEXT RESULTS PATIENT: KENIA NEGRON LOCATION: [place] [address] : 37 UNIT #: [id number] AGE: [address]: Nito Lu MD SEX: F ORDER DR: [id number] [facility] [address] [place], [place] [address] [id number] I MR#: [id number] Acc #: [id number] NAME: KENIA NEGRON : 1935 SEX: F STUDY DATE/TIME: 08/26/2016 4:45 UNIT: [facility] ROOM: [facility] STUDY DESCRIPTION: CR Chest Single View Portable Attending Physician: Nito Lu Referring Physician: Yessica Callejas M.D. Ordering Physician: Christine Lu M.D. Primary Care Physician: Yessica Callejas M.D. MEDICAL IMAGING REPORT This report is preliminary unless electronic signature is present EXAM Portable chest, 08/26 HISTORY Hypotension, dizziness, shortness of air for 4 days COMPARISON 08/24 FINDINGS A portable view of the chest was obtained. The heart size and vascularity are normal and the lungs are clear. There is right shoulder replacement. IMPRESSION No active disease. Dictated by... Yvan Aguero M.D. THIS IS AN ELECTRONICALLY VERIFIED REPORT Yvan Aguero M.D. at 08/26/2016 1:53 PM FEL/to TD: 08/26/2016 12:23 JOB #: [id number] MEDICAL IMAGING REPORT Page 1 of 1 COPY
--- NOTE | ~2016-08-22 | EKG ---
PATIENT: KENIA NEGRON UNIT #: [id number] Ventricular Rate: 56 BPM Atrial Rate: 56 BPM P-R Interval: 162 ms QRS Duration: 78 ms Q-T Interval: 424 ms QTC Calculation(Bezet): 409 ms P [place]: 56 degrees Calculated R [place]: -28 degrees Calculated T [place]: 16 degrees Diagnosis Line: Sinus bradycardia Diagnosis Line: Cannot rule out Septal infarct (cited on or before Diagnosis Line: 08-MAY-2016) Diagnosis Line: Borderline ECG Diagnosis Line: When compared with ECG of 22-AUG-2016 12:36, Diagnosis Line: No significant change was found Diagnosis Line: Confirmed by ALDO TIERNEY MD ([id number]) on 08/26/2016 Diagnosis Line: 4:20:35 PM INTERPRETING MD: NIALL BENTON
--- NOTE | ~2016-08-22 | CR63 ---
[facility] A Service of [facility] RADIOLOGY TEXT RESULTS PATIENT: KEINA NEGRON LOCATION: [place] [address]- : 37 UNIT #: [id number] AGE: [address]: Nito Lu MD SEX: F ORDER DR: [id number] [facility] [address] [place], [place] [address] [id number] I MR#: [id number] Acc #: [id number] NAME: KENIA NEGRON : 1935 SEX: F STUDY DATE/TIME: 08/23/2016 16:23 UNIT: [facility] ROOM: [facility] STUDY DESCRIPTION: CR Chest 2 View Referring Physician: Yessica Callejas M.D. Ordering Physician: Eva Coley A.P.R.N. Primary Care Physician: Yessica Callejas M.D. MEDICAL IMAGING REPORT This report is preliminary unless electronic signature is present EXAM AP and lateral chest HISTORY Short of air for 1 day. Congestive heart failure. FINDINGS Moderate cardiac enlargement and pulmonary vascularity is normal. Minimal fluid or pleural thickening in both bases. Mild right thoracic curve. Right shoulder prosthesis. IMPRESSION No acute findings. Mild cardiac enlargement. No focal infiltrates. Minimal fluid or pleural thickening in both bases. Dictated by... Chris Winters M.D. THIS IS AN ELECTRONICALLY VERIFIED REPORT Chris Winters M.D. at 08/23/2016 10:54 PM DFL/pcl TD: 08/23/2016 20:52 JOB #: [id number] MEDICAL IMAGING REPORT Page 1 of 1 COPY
--- NOTE | ~2016-08-22 | CR72 ---
[facility] A Service of [facility] RADIOLOGY TEXT RESULTS PATIENT: KENIA NEGRON LOCATION: [facility] 56- : 37 UNIT #: [id number] AGE: [address]: Nito Lu MD SEX: F ORDER DR: [id number] [facility] [address] [place], [place] [address] [id number] I MR#: [id number] Acc #: [id number] NAME: KENIA NEGRON : 1935 SEX: F STUDY DATE/TIME: 08/24/2016 5:56 UNIT: [facility] ROOM: [facility] STUDY DESCRIPTION: CR Chest Single View Portable Attending Physician: Christine Lu M.D. Referring Physician: Yessica Callejas M.D. Ordering Physician: Christine Lu M.D. Primary Care Physician: Yessica Callejas M.D. MEDICAL IMAGING REPORT This report is preliminary unless electronic signature is present EXAM Portable chest, 08/24 COMPARISON 08/23 HISTORY Hypotension, syncope, shortness of breath for 3 days. FINDINGS An AP portable view is obtained. Heart size in the patient is within normal limits for the projection. Vascular pattern appears normal and the lungs clear. Right-sided shoulder prosthesis is in place. CONCLUSION No acute process in the chest. Dictated by... Venancio Diehl M.D. THIS IS AN ELECTRONICALLY VERIFIED REPORT Venancio Diehl M.D. at 08/26/2016 9:17 AM Luis TD: 08/24/2016 08:47 JOB #: [id number] MEDICAL IMAGING REPORT Page 1 of 1 COPY
[~2016-08-22 11:55] MED LIST changes: +IRON159 MG PO; +LASIX20 MG PO; +MAG-OX 400400 M1 PO; +NEURONTIN100 MG PO; +NITROSTAT0.4 MG SL; +PREDNISONE10 M1 PO; +SENNA8.6 M1 PO; +ZANTAC150 M1 PO
[2016-08-22] MEDS ORDERED: FOLIC ACID PO (12:20)
[2016-08-22] MEDS ORDERED: PATIENT'S PHARMACY (12:20)
[2016-08-22] MEDS ORDERED: METHOTREXATE2.5 MG PO (12:22)
[2016-08-22] MEDS ORDERED: ASPIRIN81 M2 PO (12:23)
[2016-08-22] MEDS ORDERED: ALPRAZOLAM0.25 MG PO (12:23)
[2016-08-22] MEDS ORDERED: SENNA8.6 M1 PO (12:23)
[2016-08-22] MEDS ORDERED: HYDROCODON-ACE1 EAC5 PO (12:24)
[2016-08-22] MEDS ORDERED: MAG-OX 400400 M1 PO (12:24)
[2016-08-22] MEDS ORDERED: CELEXA20 MG PO (12:24)
[2016-08-22] MEDS ORDERED: HYDRALAZINE HCL50 MG PO (12:25)
[2016-08-22] MEDS ORDERED: LIPITOR40 MG PO (12:25)
[2016-08-22] MEDS ORDERED: LEVO-T25 MCG PO (12:25)
[2016-08-22] MEDS ORDERED: IMDUR PO (12:25)
[2016-08-22] MEDS ORDERED: LOPRESSOR PO (12:26)
[2016-08-22] MEDS ORDERED: VITAMIN D250000 UNIT PO (12:26)
[2016-08-22] MEDS ORDERED: ZANTAC150 M1 PO (12:26)
[2016-08-22] MEDS ORDERED: PREDNISONE PO (12:27)
[2016-08-22] MEDS ORDERED: NITROSTAT0.4 MG PO (12:27)
[2016-08-22] MEDS ORDERED: ALLOPURINOL300 MG PO (12:27)
[2016-08-22] MEDS ORDERED: NEURONTIN100 MG PO (12:31)
[2016-08-22 12:41] LABS: BASOPHIL% 0.4 % (0-2.5); EOSINOPHIL# 0.2 X10e3 (0-0.7); HEMATOCRIT 32.8 % (35.0-45.0); HEMOGLOBIN 10.5 gm/dL (12.0-16.0); LYMPHOCYTE# 1.1 X10e3 (1.0-3.5); LYMPHOCYTE% 14.4 % (17.0-45.0); MEAN CORPUSCULAR HEMOGLOBIN 32.2 PG (28-34); MEAN CORPUSCULAR HGB CONC 31.9 g/dL (30-36); MEAN PLATELET VOLUME 8.4 FL (6.5-11.5); MONOCYTE# 0.2 X10e3 (0-1.0); MONOCYTE% 2.5 % (3.0-12.0); NEUTROPHIL# 6.2 X10e3 (1.5-7.1); NEUTROPHIL% 79.7 % (40-75); PLATELET COUNT 132 X10e3 (140-420); RED BLOOD COUNT 3.25 X10e (3.90-5.30); RED CELL DISTRIBUTION WIDTH 22.7 % (11.0-15.5); WHITE BLOOD COUNT 7.8 X10e3 (4.0-10.5)
[2016-08-22 12:41] LABS: POC - CKMB <1.0 ng/mL (0.0-7.9); POC - TROPONIN <0.05 ng/mL (<=0.05)
[2016-08-22 12:42] LABS: URINE SOURCE CLEAN CATCH
[2016-08-22 12:43] LABS: DIFF IND YES
[2016-08-22 12:52] LABS: URINE APPEARANCE CLEAR; URINE BILIRUBIN NEG (NEG); URINE BLOOD NEG (NEG); URINE COLOR YELLOW; URINE GLUCOSE NEG (NEG); URINE KETONE TRACE (NEG); URINE LEUKOCYTE ESTERASE 1+ (NEG); URINE NITRATE NEG (NEG); URINE PH 5.5 (5-8); URINE PROTEIN NEG (NEG); URINE SPECIFIC GRAVITY 1.017 (1.003-1.035)
[2016-08-22 12:54] LABS: URBCS1 AUWI 0-2 /[HPF] (0-2); URINE BACTERIA AUWI NEG (NEGATIVE); URINE SQUAMOUS EPITHELIAL CELL OCC /[HPF]
[2016-08-22 12:56] LABS: ALBUMIN SERUM 3.7 g/dL (3.5-5.0); ALKALINE PHOSPHATASE 69 U/L (32-92); ALT (SGPT) 16 U/L (10-40); AST (SGOT) 19 U/L (10-42); BILIRUBIN,TOTAL 0.8 mg/dL (0.2-2.0); BLOOD UREA NITROGEN 44 mg/dL (9-23); BUN/CREATININE RATIO 19.13; CALCIUM SERUM 8.3 mg/dL (8.4-10.2); CARBON DIOXIDE 32 mmol/L (22-31); CHLORIDE 93 mmol/L (100-111); CREATININE SERUM 2.3 mg/dL (0.6-1.4); GLOM FILT RATE Estimated 19.6 mL/min (>60); GLUCOSE FASTING 128 mg/dL (70-110); POTASSIUM 3.4 mmol/L (3.5-5.1); SODIUM 138 mmol/L (135-145)
[2016-08-22 13:03] LABS: CULTURE INDICATED? NO
[2016-08-22 13:07] LABS: URINE MUCUS PRESENT
[2016-08-22 13:07] LABS: BILIRUBIN, DIRECT <0.1 mg/dL (0.0-0.2); BILIRUBIN,INDIRECT 0.7 mg/dL (0.0-0.9)
[2016-08-22 13:23] LABS: NUCLEATED RED BLOOD CELL 1 /100 ([, 0])
[2016-08-22 13:26] LABS: ANISOCYTOSIS MOD; PLATELET ESTIMATE DECREASED (NORMAL)
[2016-08-22 13:30] LABS: HYPOCHROMIA SL
[2016-08-22 13:59] LABS: POC - CKMB <1.0 ng/mL (0.0-7.9); POC - TROPONIN <0.05 ng/mL (<=0.05)
[2016-08-23 07:03] LABS: BUN/CREATININE RATIO 20.62; CALCIUM SERUM 7.7 mg/dL (8.4-10.2); CREATININE SERUM 1.6 mg/dL (0.6-1.4); GLOM FILT RATE Estimated 30.3 mL/min (>60); POTASSIUM 3.7 mmol/L (3.5-5.1)
[2016-08-23 19:01] LABS: %MB 3.6 % (0.0-4.0); MB 2.2 ng/ml
[2016-08-24 07:26] LABS: CALCIUM SERUM 7.8 mg/dL (8.4-10.2); CREATININE SERUM 1.2 mg/dL (0.6-1.4); MAGNESIUM 1.6 mg/dL (1.6-3.0); POTASSIUM 4.2 mmol/L (3.5-5.1)
[2016-08-24 08:07] LABS: HEMATOCRIT 29.2 % (35.0-45.0); HEMOGLOBIN 9.2 gm/dL (12.0-16.0); MEAN CELL VOLUME 103.3 FL (83-96); MEAN CORPUSCULAR HEMOGLOBIN 32.6 PG (28-34); MEAN CORPUSCULAR HGB CONC 31.6 g/dL (30-36); MEAN PLATELET VOLUME 9.4 FL (6.5-11.5); RED BLOOD COUNT 2.83 X10e (3.90-5.30); WHITE BLOOD COUNT 9.6 X10e3 (4.0-10.5)
[2016-08-25 06:38] LABS: BUN/CREATININE RATIO 14.61; CALCIUM SERUM 8.1 mg/dL (8.4-10.2); CREATININE SERUM 1.3 mg/dL (0.6-1.4); MAGNESIUM 1.9 mg/dL (1.6-3.0); PHOSPHOROUS 2.2 mg/dL (2.5-4.6); POTASSIUM 4.2 mmol/L (3.5-5.1)
[2016-08-25 10:06] LABS: BASOPHIL# 0.1 X10e3 (0-0.3); BASOPHIL% 0.8 % (0-2.5); EOSINOPHIL# 0.5 X10e3 (0-0.7); HEMATOCRIT 29.5 % (35.0-45.0); HEMOGLOBIN 9.3 gm/dL (12.0-16.0); LYMPHOCYTE# 2.6 X10e3 (1.0-3.5); LYMPHOCYTE% 32.5 % (17.0-45.0); MEAN CELL VOLUME 103.2 FL (83-96); MEAN CORPUSCULAR HEMOGLOBIN 32.5 PG (28-34); MEAN CORPUSCULAR HGB CONC 31.5 g/dL (30-36); MEAN PLATELET VOLUME 9.2 FL (6.5-11.5); MONOCYTE# 0.4 X10e3 (0-1.0); MONOCYTE% 5.6 % (3.0-12.0); NEUTROPHIL# 4.4 X10e3 (1.5-7.1); NEUTROPHIL% 55.1 % (40-75); PLATELET COUNT 88 X10e3 (140-420); RED BLOOD COUNT 2.85 X10e (3.90-5.30); RED CELL DISTRIBUTION WIDTH 22.9 % (11.0-15.5); WHITE BLOOD COUNT 8.1 X10e3 (4.0-10.5)
[2016-08-25 10:14] LABS: DIFF IND NO
[2016-08-26 06:19] LABS: BASOPHIL% 0.7 % (0-2.5); EOSINOPHIL# 0.4 X10e3 (0-0.7); EOSINOPHIL% 5.6 % (0.0-7.0); HEMATOCRIT 29.7 % (35.0-45.0); HEMOGLOBIN 9.4 gm/dL (12.0-16.0); LYMPHOCYTE# 2.5 X10e3 (1.0-3.5); LYMPHOCYTE% 36.6 % (17.0-45.0); MEAN CELL VOLUME 102.2 FL (83-96); MEAN CORPUSCULAR HEMOGLOBIN 32.3 PG (28-34); MEAN CORPUSCULAR HGB CONC 31.6 g/dL (30-36); MEAN PLATELET VOLUME 9.2 FL (6.5-11.5); MONOCYTE# 0.5 X10e3 (0-1.0); MONOCYTE% 7.4 % (3.0-12.0); NEUTROPHIL# 3.4 X10e3 (1.5-7.1); NEUTROPHIL% 49.7 % (40-75); PLATELET COUNT 112 X10e3 (140-420); RED BLOOD COUNT 2.91 X10e (3.90-5.30); RED CELL DISTRIBUTION WIDTH 23.2 % (11.0-15.5); WHITE BLOOD COUNT 6.8 X10e3 (4.0-10.5)
[2016-08-26 06:20] LABS: DIFF IND NO
[2016-08-26 07:06] LABS: ALBUMIN SERUM 3.1 g/dL (3.5-5.0); BILIRUBIN,TOTAL 0.1 mg/dL (0.2-2.0); BUN/CREATININE RATIO 16.66; CALCIUM SERUM 9.4 mg/dL (8.4-10.2); CREATININE SERUM 1.5 mg/dL (0.6-1.4); GLOM FILT RATE Estimated 32.8 mL/min (>60); POTASSIUM 4.7 mmol/L (3.5-5.1); PROTEIN TOTAL SERUM 5.4 g/dL (6.0-8.3)
[2016-08-26] MEDS ORDERED: HYDRALAZINE HCL25 MG PO (15:48)
[2016-08-26] MEDS ORDERED: LOPRESSOR PO (15:48)
[2016-08-26] MEDS ORDERED: AMIODARONE PO (15:49)
== END 2016-08-26 18:56 | disposition home health service (06) | DRG 312 ==
LOC: CED 11:55 → C5C 14:30 → CEDOF 14:30 → CED 16:01 → C5C 16:02 → CEDOF 16:02 → C5C 08-26 18:56
PROVIDERS: Emergency Medicine; Internal Medicine Pulmonary Disease; Nurse Practitioner
DX: I95.2 Hypotension due to drugs (principal); N17.9 Acute kidney failure, unspecified; I50.32 Chronic diastolic (congestive) heart failure; J84.10 Pulmonary fibrosis, unspecified; D69.6 Thrombocytopenia, unspecified; I48.0 Paroxysmal atrial fibrillation; I08.1 Rheumatic disorders of both mitral and tricuspid valves; E86.0 Dehydration; J44.9 Chronic obstructive pulmonary disease, unspecified; I48.91 Unspecified atrial fibrillation; G89.29 Other chronic pain; M06.9 Rheumatoid arthritis, unspecified; M19.90 Unspecified osteoarthritis, unspecified site; M54.9 Dorsalgia, unspecified
CPT/HCPCS: 36415; 70450; 71010; 71020; 72220; 80048; 80053; 80076; 81003; 82308; 82550; 82553; 83735; 83880; 84100; 84484; 85025; 85027; 85610; 85730; 87086; 93005; 99285; J1650; J3475

== ENCOUNTER 2016-09-10 17:01 | Emergency (ER) | payer MEDICARE, BC ==
--- NOTE | ~2016-09-10 | CT4 ---
[facility] A Service of [facility] RADIOLOGY TEXT RESULTS PATIENT: KENIA NEGRON LOCATION: [facility] : 37 UNIT #: [id number] AGE: [address]: Ricky Rubalcava MD SEX: F ORDER DR: [id number] [facility] [address] [place], [place] [address] [id number] E MR#: [id number] Acc #: [id number] NAME: KENIA NEGRON. : 1935 SEX: F STUDY DATE/TIME: 09/11/2016 0:01 UNIT: [facility] ROOM: STUDY DESCRIPTION: CT Abd and Pelv Wo Cont Attending Physician: Ricky Rubalcava M.D. Ordering Physician: Ricky Rubalcava M.D. Primary Care Physician: Yessica Callejas M.D. MEDICAL IMAGING REPORT This report is preliminary unless electronic signature is present EXAM CT abdomen and pelvis without contrast INDICATIONS Right upper quadrant abdominal pain and nausea for the past [address] of the abdomen and pelvis. This CT exam was performed with one or more of the following radiation dose reduction techniques: automatic exposure control, adjustment of mA and/or kV according to patient size, and iterative reconstruction. COMPARISON 05/07/2016 FINDINGS Included lung bases are clear. The liver, spleen, kidneys, adrenal glands, pancreas show no acute abnormality. Previous cholecystectomy. Hiatal hernia versus thickening of the distal esophagus. Appearance is very similar to the prior. There is stable small amount of fluid along the lesser curvature of the stomach. Duodenal diverticula. There is focal thickening in the second portion of the duodenum. The bowel loops are nondilated. There is a tiny nonobstructing calculus in the right kidney. Probable small proteinaceous or hemorrhagic cyst in the right kidney. Pelvis without contrast: No pelvic mass or fluid. No aggressive appearing bone lesion. Multilevel degenerative change in the lumbar spine. IMPRESSION 1. Hiatal hernia versus distal esophageal thickening similar to [facility] A Service of [facility] RADIOLOGY TEXT RESULTS PATIENT: KENIA NEGRON LOCATION: [facility] : 37 UNIT #: [id number] AGE: [address]: Ricky Rubalcava MD SEX: F ORDER DR: 05/07/2016. 2. Small amount of fluid along the lesser curvature of the stomach is nonspecific but was present on the prior study and may be reactive. Correlate for the possibility of gastritis. 3. Duodenal diverticula. There is focal thickening of the second portion of the duodenum, versus a adjacent duodenal diverticulum. This could be related to contraction, but it could also reflect focal duodenitis. Mass is not completely excluded and direct visualization may be warranted. 4. No acute findings are seen elsewhere in the abdomen or pelvis. Dictated by... Jeovany Ortiz M.D. THIS IS AN ELECTRONICALLY VERIFIED REPORT Jeovany Ortiz M.D. at 09/11/2016 9:53 PM EED/to TD: 09/11/2016 12:00 JOB #: [id number] MEDICAL IMAGING REPORT Page 1 of 1 COPY
[~2016-09-10 17:01] MED LIST changes: +AMIODARONE PO; +IMDUR PO; +LEVO-T25 MCG PO; +NITROSTAT0.4 MG PO; +PATIENT'S PHARMACY
[2016-09-10 17:32] LABS: BASOPHIL% 0.4 % (0-2.5); EOSINOPHIL# 0.1 X10e3 (0-0.7); EOSINOPHIL% 1.8 % (0.0-7.0); HEMATOCRIT 31.1 % (35.0-45.0); LYMPHOCYTE# 1.5 X10e3 (1.0-3.5); LYMPHOCYTE% 26.2 % (17.0-45.0); MEAN CORPUSCULAR HEMOGLOBIN 33.1 PG (28-34); MEAN CORPUSCULAR HGB CONC 32.2 g/dL (30-36); MEAN PLATELET VOLUME 8.1 FL (6.5-11.5); MONOCYTE# 0.1 X10e3 (0-1.0); MONOCYTE% 1.9 % (3.0-12.0); NEUTROPHIL# 3.9 X10e3 (1.5-7.1); NEUTROPHIL% 69.7 % (40-75); PLATELET COUNT 210 X10e3 (140-420); RED BLOOD COUNT 3.02 X10e (3.90-5.30); RED CELL DISTRIBUTION WIDTH 22.9 % (11.0-15.5); WHITE BLOOD COUNT 5.7 X10e3 (4.0-10.5)
[2016-09-10 17:34] LABS: DIFF IND YES
[2016-09-10 17:46] LABS: ALBUMIN SERUM 3.8 g/dL (3.5-5.0); BILIRUBIN, DIRECT 0.1 mg/dL (0.0-0.2); BILIRUBIN,INDIRECT 0.4 mg/dL (0.0-0.9); BILIRUBIN,TOTAL 0.5 mg/dL (0.2-2.0); BUN/CREATININE RATIO 12.63; CALCIUM SERUM 8.6 mg/dL (8.4-10.2); CREATININE SERUM 1.9 mg/dL (0.6-1.4); GLOM FILT RATE Estimated 24.6 mL/min (>60); POTASSIUM 4.1 mmol/L (3.5-5.1); PROTEIN TOTAL SERUM 6.2 g/dL (6.0-8.3)
[2016-09-10 17:58] LABS: OVALOCYTES PRESENT; PLATELET ESTIMATE NORMAL (NORMAL); POIKILOCYTOSIS MOD; SCHISTOCYTES PRESENT; SPHEROCYTE SL
[2016-09-10 17:59] LABS: ACANTHOCYTES PRESENT
[2016-09-10 19:38] LABS: URINE SOURCE CLEAN CATCH
[2016-09-10 19:44] LABS: URINE APPEARANCE CLEAR; URINE BILIRUBIN NEG (NEG); URINE BLOOD NEG (NEG); URINE COLOR DK YELLOW; URINE GLUCOSE NEG (NEG); URINE KETONE NEG (NEG); URINE LEUKOCYTE ESTERASE 1+ (NEG); URINE NITRATE NEG (NEG); URINE PROTEIN 1+ (NEG); URINE SPECIFIC GRAVITY 1.026 (1.003-1.035); URINE UROBILINOGEN 0.2 MG/DL (NEG)
[2016-09-10 19:49] LABS: CULTURE INDICATED? YES; URBCS1 AUWI 0-2 /[HPF] (0-2); URINE BACTERIA AUWI NEG (NEGATIVE); URINE SQUAMOUS EPITHELIAL CELL OCC /[HPF]
== END 2016-09-11 01:05 | disposition home or self-care (01) ==
LOC: CED 17:01
DX: R10.11 Right upper quadrant pain (principal); R11.2 Nausea with vomiting, unspecified; I10 Essential (primary) hypertension; J44.9 Chronic obstructive pulmonary disease, unspecified; F41.9 Anxiety disorder, unspecified; K21.9 Gastro-esophageal reflux disease without esophagitis; Z90.49 Acquired absence of other specified parts of digestive tract; Z90.710 Acquired absence of both cervix and uterus; Z88.2 Allergy status to sulfonamides
CPT/HCPCS: 36415; 74176; 80048; 80076; 81003; 83690; 85025; 87086; 96361; 96374; 96375; 99284; J2270; J2405